=== PATIENT | female | born 1975 | race Caucasian/White ===

== ENCOUNTER 2021-11-12 07:39 | Inpatient (IN) | payer BC, SELFPAY ==
[2021-11-12] MEDS ORDERED: Cefepime 2 GM VIAL ONE (08:18)
[2021-11-12] MEDS ORDERED: Acetaminophen 500 MG TAB ONE (08:18)
[2021-11-12 08:21] LABS: Hemoglobin 14.1 g/dL (12.0-16.0); Mean Corpuscular HGB CONC 33.5 g/dL (32.0-36.0); Mean Corpuscular Hemoglobin 28.6 pg (27.0-31.0); Mean Corpuscular Volume 85.2 fL (78.0-98.0); Mean Platelet Volume 8.9 fL (7.4-10.4); Platelet Count 207 thou/uL (130-400); RBC Distribution Width 12.7 % (11.5-14.5); Red Blood Cell (RBC) Count 4.93 mill/uL (4.20-5.40); White Blood Cell (WBC) Count 22.4 thou/uL (4.8-10.8)
[2021-11-12 08:30] LABS: BHCG - Serum Negative (NEGATIVE); Pregs Control Background? CLEAR/WHITE (CLR/WHITE); Pregs Control Bar Appear? YES (CONTROL BAR)
[2021-11-12 08:38] LABS: ALT (SGPT) 57 U/L (8-55); AST (SGOT) 24 U/L (5-34); Albumin 4.2 g/dL (3.5-5.0); Alkaline Phosphatase 133 U/L (40-110); Anion Gap 20 mmol/L (10-20); BUN (Urea Nitrogen) 30 mg/dL (7.0-18.7); Bilirubin, Total 1.3 mg/dL (0.2-1.2); Calc. Creatinine Clearance 0 mL/min (70-130); Calcium 9.8 mg/dL (7.8-10.44); Carbon Dioxide 24 mmol/L (22-29); Chloride 94 mmol/L (98-107); Estimated GFR 32; Globulin 4.2 g/dL (2.4-3.5); Glucose 177 mg/dL (70-105); Potassium 3.3 mmol/L (3.5-5.1); Protein, Total 8.4 g/dL (6.0-8.3); Sodium 135 mmol/L (136-145)
[2021-11-12 08:46] LABS: INR-International Normal Ratio 1.2; Prothrombin Time 15.8 sec (12.0-14.7)
[2021-11-12 08:47] LABS: PTT 33.3 sec (22.9-36.1)
[2021-11-12 08:59] LABS: Band 33 % (5-11); Lymphocytes 10 % (21-51); MDiff Complete? YES; Metamyelocyte 1 % (0-0); Monocytes 6 % (0-10); Neutrophil 50 % (42-75); Platelet Morphology Comment Appears Adequate; RBC Morphology Normal; Vacuoles SLIGHT
[2021-11-12 09:20] LABS: Bilirubin Negative (Negative); Blood, Urine 2+ (Negative); Clarity Extra Turbid (Clear); Glucose, Urine (Dipstick) 50 mg/dL (Negative); Ketone, Urine Trace mg/dL (Negative); Leukocyte 250 Leu/uL (Negative); Nitrite Negative (Negative); Protein, Urine (Dipstick) 200 mg/dL (Neg-Trace); Specific Gravity, Urine 1.025 (1.002-1.036); Urobilinogen Normal mg/dL (Less than 2); pH, Urine 5.5 (5.0-9.0)
[2021-11-12 09:25] LABS: Bacteria/HPF 4+ HPF (None Seen)
[2021-11-12] MEDS ORDERED: VANCOMYCIN 2 GRAM/500 ML BAG 2 GM in Premix Bag 1 BAG IVPB SCH (09:45)
[2021-11-12] MEDS ORDERED: Ketorolac Tromethamine 30 MG/ML VIAL ONE (10:59)
[2021-11-12] MEDS: Sodium Chloride 0.9% 1,000 ML IV SCH ×3 (11:45→23:35)
[2021-11-12] MEDS ORDERED: Fentanyl 100 MCG/2 ML VIAL ONE (11:49)
[2021-11-12 12:42] LABS: SARS-CoV-2 NAA Rapid Test Not Detected (NotDetected)
[2021-11-12] MEDS ORDERED: Sodium Chloride 0.9% 1,000 ML IV SCH (12:45)
[2021-11-12] MEDS ORDERED: Communication Order-Pharmacy FS SCH (12:46)
[2021-11-12] MEDS ORDERED: HYDROcodone/Acetaminophen 5/325 mg Tablet PO PRN (12:46)
[2021-11-12] MEDS ORDERED: Ondansetron ODT 4 MG TAB PO PRN (12:46)
[2021-11-12] MEDS ORDERED: Fentanyl 100 MCG/2 ML VIAL SLOW IVP SCH (13:45)
[2021-11-12] MEDS: Ondansetron PF 4 MG/2 ML Vial IVP PRN ×2 (14:31→20:33)
[2021-11-12] MEDS ORDERED: Iopamidol-370 76% 500 ML 1 ML ONE (14:50)
[2021-11-12] MEDS: Acetaminophen 500 MG TAB PO PRN (17:09)
[2021-11-12] MEDS: Ketorolac Tromethamine 30 MG/ML VIAL IVP PRN (18:47)
[2021-11-12] MEDS: Cefepime 1 GM in Sodium Chloride 0.9% 100 ML IVPB SCH (20:33)
[2021-11-12] MEDS ORDERED: Famotidine/PF 20 mg/2ml Vial SLOW IVP SCH (21:00)
[2021-11-13] MEDS ORDERED: Sodium Chloride 0.9% 500 ML IVPB SCH (00:45)
[2021-11-13] MEDS ORDERED: Sodium Chloride 0.9% 500 ML IV SCH (00:45)
[2021-11-13] MEDS: Acetaminophen 500 MG TAB PO PRN (00:59)
[2021-11-13] MEDS: Sodium Chloride 0.9% 1,000 ML IV SCH ×3 (02:28→14:44)
[2021-11-13] MEDS: Ketorolac Tromethamine 30 MG/ML VIAL IVP PRN (03:24)
[2021-11-13 03:58] LABS: Hemoglobin A1c 5.4 % (4.0-6.0)
[2021-11-13 04:27] LABS: ALT (SGPT) 29 U/L (8-55); AST (SGOT) 19 U/L (5-34); Albumin 2.7 g/dL (3.5-5.0); Alkaline Phosphatase 68 U/L (40-110); Anion Gap 16 mmol/L (10-20); BUN (Urea Nitrogen) 29 mg/dL (7.0-18.7); Bilirubin, Total 1.1 mg/dL (0.2-1.2); Calc. Creatinine Clearance 90 mL/min (70-130); Calcium 7.6 mg/dL (7.8-10.44); Carbon Dioxide 17 mmol/L (22-29); Chloride 107 mmol/L (98-107); Estimated GFR 48; Glucose 121 mg/dL (70-105); Potassium 2.7 mmol/L (3.5-5.1); Protein, Total 5.7 g/dL (6.0-8.3); Sodium 137 mmol/L (136-145)
[2021-11-13] MEDS: NOREPINEPHRINE 8 MG/250 ML-D5W 250 ML IVPB SCH ×2 (04:35→23:53)
[2021-11-13 04:37] LABS: Band 50 % (5-11); Blast 1 % (0-0); Eosinophils 1 % (0-10); Hemoglobin 10.8 g/dL (12.0-16.0); Lymphocytes 8 % (21-51); MDiff Complete? YES; Mean Corpuscular HGB CONC 32.6 g/dL (32.0-36.0); Mean Corpuscular Hemoglobin 28.1 pg (27.0-31.0); Mean Corpuscular Volume 86.1 fL (78.0-98.0); Metamyelocyte 12 % (0-0); Monocytes 5 % (0-10); Myelocyte 2 % (0-0); Neutrophil 21 % (42-75); Platelet Count 148 thou/uL (130-400); Platelet Morphology Comment Appears Adequate; RBC Distribution Width 12.8 % (11.5-14.5); RBC Morphology Normal; Red Blood Cell (RBC) Count 3.84 mill/uL (4.20-5.40); Reflex for Review?? YES; White Blood Cell (WBC) Count 5.6 thou/uL (4.8-10.8)
[2021-11-13] MEDS ORDERED: Potassium Chloride 20 MEQ TAB PO SCH ×2 (05:00→16:00)
[2021-11-13 05:28] LABS: Magnesium 1.2 mg/dL (1.6-2.6)
[2021-11-13] MEDS ORDERED: Magnesium 2 GM/50 ML(in water) 2 GM in Premix Bag 1 BAG IVPB SCH ×2 (06:15→08:15)
[2021-11-13] MEDS ORDERED: Electrolyte Replacement Protocol 1 EACH FS SCH ×2 (07:45→14:00)
[2021-11-13] MEDS ORDERED: Potassium Chloride 40 MEQ in Premix Bag 1 BAG IVPB SCH ×2 (08:15→13:00)
[2021-11-13] MEDS: Cefepime 1 GM in Sodium Chloride 0.9% 100 ML IVPB SCH ×2 (08:56→20:32)
[2021-11-13] MEDS ORDERED: FLU VACC QS2022-23(6MOS UP)/PF 60 MCG/0.5 ML SYRINGE IM ONE (09:00)
[2021-11-13 09:39] LABS: HBCM Index 0.05 S/CO (0-0.79); HBSAg Index 0.53 S/CO (0-0.99); HIV (1/2) Antibody/Antigen Non-Reactive (NonReactive); HIV 1/2 INDEX 0.09 S/CO (<1.00); Hep A IgM AB Non-Reactive (NonReactive); Hep A IgM S/CO 0.16 S/CO (0-0.79); Hep B Surf Ag Non-Reactive S/CO (NonReactive); Hep C IgG Ab Non-Reactive (NonReactive); Hepatitis B Core IgM Abs Non-Reactive (NonReactive)
[2021-11-13] MEDS: Vancomycin 1.5 GRAM/300 ML BAG 1.5 GM in Premix Bag 1 BAG IVPB SCH (09:45)
[2021-11-13] MEDS: Morphine 2 MG/ML VIAL SLOW IVP PRN ×2 (09:57→14:27)
[2021-11-13] MEDS: metroNIDAZOLE 500 MG in Premix Bag 1 BAG IVPB SCH ×2 (10:42→17:45)
[2021-11-13] MEDS ORDERED: fentaNYL Citrate/PF 100 MCG/2 ML SYRINGE ONE (10:54)
[2021-11-13] MEDS ORDERED: Famotidine/PF 20 mg/2ml Vial ONE (10:55)
[2021-11-13] MEDS ORDERED: ePHEDrine Sulfate 50 MG/10 ML VIAL ONE (10:55)
[2021-11-13] MEDS ORDERED: SUGAMMADEX SODIUM 200 MG/2 ML VIAL ONE (10:55)
[2021-11-13 11:11] LABS: INR-International Normal Ratio 1.5
[2021-11-13 11:12] LABS: PTT 30.7 sec (22.9-36.1)
[2021-11-13] MEDS ORDERED: Lidocaine 2% 6 ML SYR ONE (11:25)
[2021-11-13] MEDS ORDERED: Lidocaine 1% PF 5 ML VIAL ONE (11:25)
[2021-11-13] MEDS ORDERED: Lidocaine 1% MPF 2 ML VIAL ONE (11:37)
[2021-11-13] MEDS ORDERED: Metoclopramide HCl 10 MG/2 ML VIAL ONE (11:37)
[2021-11-13] MEDS ORDERED: Ondansetron PF 4 MG/2 ML Vial ONE (11:37)
[2021-11-13] MEDS ORDERED: Rocuronium Bromide 10 MG/ML (10ML VIAL) ONE ×2 (11:37)
[2021-11-13] MEDS ORDERED: Calcium Chloride 1 GM/10 ML Abboject SYRINGE ONE (11:37)
[2021-11-13] MEDS ORDERED: Succinylcholine 200 MG/10 ml SYRINGE FS ONE (11:37)
[2021-11-13] MEDS ORDERED: PHENYLEPHRINE-NS 100 MCG/ML 10 ML SYRINGE ONE (11:37)
[2021-11-13] MEDS ORDERED: PROPOFOL 200 MG/20 ML VIAL ONE (11:37)
[2021-11-13] MEDS ORDERED: Neomycin-Polymyxin 1 ML AMP ONE (12:51)
[2021-11-13 12:58] LABS: Syphilis Antibody INDETERMINATE (Nonreactive); Syphilis Antibody Index 7.41 S/CO (<1.00 Non-Reactive)
[2021-11-13] MEDS ORDERED: HYDROmorphone 10 mg/100 ml CADD IVPB PRN (14:52)
[2021-11-13] MEDS ORDERED: diphenhydrAMINE 50 MG/ML VIAL IM PRN (14:52)
[2021-11-13] MEDS ORDERED: diphenhydrAMINE 50 MG/ML VIAL IVP PRN (14:52)
[2021-11-13] MEDS ORDERED: Naloxone HCl 0.4 mg/ml Vial IV PRN (14:52)
[2021-11-13] MEDS ORDERED: Promethazine HCl 25 MG/ML VIAL IM PRN (14:52)
[2021-11-13] MEDS ORDERED: diphenhydrAMINE 25 MG CAP PO PRN (14:52)
[2021-11-13] MEDS ORDERED: Communication Order-Pharmacy FS SCH (15:00)
[2021-11-13] MEDS ORDERED: Fentanyl 100 MCG/2 ML VIAL SLOW IVP SCH (15:00)
[2021-11-13 15:18] LABS: Potassium 3.3 mmol/L (3.5-5.1)
[2021-11-13] MEDS ORDERED: Lorazepam 0.5 MG TAB PO PRN (16:52)
[2021-11-13 17:07] LABS: ALV-art Gradient 12.505 mmHg (0-20); Actual Bicarbonate (HCO3a) 16.4 mEq/L (22-28); Base Excess (BEa) -7.6 mEq/L (-2.0 to +3.0); CO2 Tension 28.9 mmHg (35.0-45.0); Calcium, Ionized (arterial) 1.14 mmol/L (1.12-1.30); Carboxyhemoglobin (COHb) 0.3 gm% (0.0-3.0); Hemoglobin (Hb) 11.2 g/dL (12.0-16.0); O2 Tension (PaO2), arterial 101.1 mmHg (80.0-100.0); Potassium - ABG Lab 3.13 mmol/L (3.70-5.30); Puncture Site Arterial Line; pH, Arterial 7.37 (7.35-7.45)
[2021-11-13] MEDS ORDERED: Metoprolol Tartrate 5 MG/5 ML VIAL ONE (18:44)
[2021-11-13] MEDS ORDERED: Metoprolol Tartrate 5 MG/5 ML VIAL IVP SCH (18:45)
[2021-11-13] MEDS ORDERED: Enoxaparin Sodium 100 MG/ML SYRINGE SC SCH (18:45)
[2021-11-13] MEDS ORDERED: Lactated Ringer's 500 ML IV SCH (19:15)
[2021-11-13] MEDS ORDERED: Enoxaparin Sodium 40 MG/0.4 ML SYRINGE SC SCH (21:00)
[2021-11-13] MEDS: Famotidine/PF 20 mg/2ml Vial SLOW IVP SCH (21:30)
[2021-11-13 21:32] LABS: Chlamydia by PCR Not Detected (NotDetected); GC by PCR Not Detected (NotDetected)
[2021-11-13] MEDS ORDERED: Melatonin 3 MG TAB PO PRN (22:48)
[2021-11-14] MEDS: metroNIDAZOLE 500 MG in Premix Bag 1 BAG IVPB SCH ×2 (01:29→08:53)
[2021-11-14 04:57] LABS: Phosphorus 3.5 mg/dL (2.3-4.7)
[2021-11-14 05:01] LABS: Anion Gap 14 mmol/L (10-20); BUN (Urea Nitrogen) 23 mg/dL (7.0-18.7); Calc. Creatinine Clearance 118 mL/min (70-130); Calcium 7.8 mg/dL (7.8-10.44); Carbon Dioxide 18 mmol/L (22-29); Chloride 107 mmol/L (98-107); Estimated GFR 64; Glucose 104 mg/dL (70-105); Potassium 3.2 mmol/L (3.5-5.1); Sodium 136 mmol/L (136-145)
[2021-11-14 05:02] LABS: Hemoglobin 10.5 g/dL (12.0-16.0); Mean Corpuscular HGB CONC 30.8 g/dL (32.0-36.0); Mean Corpuscular Hemoglobin 27.5 pg (27.0-31.0); Mean Corpuscular Volume 89.2 fL (78.0-98.0); Mean Platelet Volume 9.1 fL (7.4-10.4); Platelet Count 179 thou/uL (130-400); RBC Distribution Width 13.6 % (11.5-14.5); Red Blood Cell (RBC) Count 3.81 mill/uL (4.20-5.40); White Blood Cell (WBC) Count 8.5 thou/uL (4.8-10.8)
[2021-11-14 05:03] LABS: Band 55 % (5-11); Lymphocytes 17 % (21-51); MDiff Complete? YES; Monocytes 8 % (0-10); Neutrophil 20 % (42-75); Toxic Granulation SLIGHT; Vacuoles SLIGHT
[2021-11-14] MEDS ORDERED: fentaNYL Citrate/PF 100 MCG/2 ML SYRINGE ONE (06:55)
[2021-11-14] MEDS ORDERED: Midazolam HCl 2 mg/2 ml Vial ONE ×2 (07:13→09:22)
[2021-11-14] MEDS: Sodium Chloride 0.9% 1,000 ML IV SCH ×3 (07:33→22:59)
[2021-11-14] MEDS ORDERED: Magnesium 2 GM/50 ML(in water) 2 GM in Premix Bag 1 BAG IVPB SCH (08:00)
[2021-11-14] MEDS ORDERED: Succinylcholine 200 MG/10 ml SYRINGE FS ONE (08:02)
[2021-11-14] MEDS ORDERED: Ondansetron PF 4 MG/2 ML Vial ONE (08:02)
[2021-11-14] MEDS ORDERED: Lidocaine 1% PF 5 ML VIAL ONE (08:02)
[2021-11-14] MEDS ORDERED: PHENYLEPHRINE-NS 100 MCG/ML 10 ML SYRINGE ONE (08:02)
[2021-11-14] MEDS ORDERED: Dexamethasone 20 MG/5 ML VIAL ONE (08:02)
[2021-11-14] MEDS ORDERED: PROPOFOL 200 MG/20 ML VIAL ONE (08:02)
[2021-11-14] MEDS ORDERED: Rocuronium Bromide 10 MG/ML (10ML VIAL) ONE (08:02)
[2021-11-14] MEDS: Cefepime 1 GM in Sodium Chloride 0.9% 100 ML IVPB SCH (08:53)
[2021-11-14] MEDS ORDERED: Neomycin-Polymyxin 1 ML AMP ONE (09:01)
[2021-11-14] MEDS ORDERED: Piperacillin/Tazobactam 3.375 GM in Sodium Chloride 0.9% 100 ML IVPB SCH ×2 (10:00→10:15)
[2021-11-14] MEDS: Enoxaparin Sodium 100 MG/ML SYRINGE SC SCH ×2 (10:30→20:56)
[2021-11-14] MEDS: Famotidine/PF 20 mg/2ml Vial SLOW IVP SCH ×2 (10:30→20:55)
[2021-11-14] MEDS: Potassium Chloride 20 MEQ in Premix Bag 1 BAG IVPB SCH ×2 (10:31→11:37)
[2021-11-14] MEDS ORDERED: Ventilator Sedation Protocol 1 EACH FS SCH (10:45)
[2021-11-14 11:01] LABS: Actual Bicarbonate (HCO3a) 17.6 mEq/L (22-28); Base Excess (BEa) -10.2 mEq/L (-2.0 to +3.0); CO2 Tension 46.6 mmHg (35.0-45.0); Calcium, Ionized (arterial) 1.08 mmol/L (1.12-1.30); Carboxyhemoglobin (COHb) 0.6 gm% (0.0-3.0); Hemoglobin (Hb) 10.8 g/dL (12.0-16.0); O2 Tension (PaO2), arterial 74.2 mmHg (80.0-100.0); Potassium - ABG Lab 3.81 mmol/L (3.70-5.30)
[2021-11-14 11:02] LABS: Puncture Site Arterial Line; pH, Arterial 7.19 (7.35-7.45)
[2021-11-14] MEDS ORDERED: DISCONTINUE PREVIOUS NARCOTIC PAIN MEDICATIONS AND BENZODIAZEPINES FS SCH (11:15)
[2021-11-14] MEDS ORDERED: Morphine 4 MG/ML VIAL SLOW IVP PRN (11:15)
[2021-11-14] MEDS ORDERED: Propofol BOLUS 1,000 MG/100 ML VIAL IV PRN (11:15)
[2021-11-14] MEDS ORDERED: Fentanyl BOLUS 250 ML IVPB PRN (11:15)
[2021-11-14] MEDS: Fentanyl CADD 100 ML IV SCH (11:36)
[2021-11-14 12:24] LABS: Vancomycin, Trough 3.4 ug/mL
[2021-11-14 12:59] LABS: Actual Bicarbonate (HCO3a) 18.3 mEq/L (22-28); Calcium, Ionized (arterial) 1.05 mmol/L (1.12-1.30); Carboxyhemoglobin (COHb) 0.2 gm% (0.0-3.0); Hemoglobin (Hb) 10.6 g/dL (12.0-16.0); O2 Tension (PaO2), arterial 92.6 mmHg (80.0-100.0); Potassium - ABG Lab 4.37 mmol/L (3.70-5.30); pH, Arterial 7.38 (7.35-7.45)
[2021-11-14 13:00] LABS: Puncture Site Arterial Line
[2021-11-14] MEDS ORDERED: Vancomycin 1.5 GRAM/300 ML BAG 1.5 GM in Premix Bag 1 BAG IVPB SCH (13:00)
[2021-11-14] MEDS: Vancomycin 1.5 GRAM/300 ML BAG 1.5 GM in Premix Bag 1 BAG IVPB SCH ×3 (13:50→21:05)
[2021-11-14] MEDS: Clindamycin/D5W 900 MG in Premix Bag 1 BAG IVPB SCH ×2 (15:03→21:03)
[2021-11-14] MEDS: Midazolam HCl 2 mg/2 ml Vial SLOW IVP PRN ×2 (15:14→17:17)
[2021-11-14 16:44] LABS: Potassium 4.1 mmol/L (3.5-5.1)
[2021-11-14] MEDS: Piperacillin/Tazobactam 3.375 GM in Sodium Chloride 0.9% 100 ML IVPB SCH (17:19)
[2021-11-14] MEDS: Acetaminophen 500 MG TAB PO PRN (17:19)
[2021-11-14] MEDS: NOREPINEPHRINE 8 MG/250 ML-D5W 250 ML IVPB SCH (17:48)
[2021-11-14] MEDS: Propofol 1,000 MG/100 ML VIAL IV PRN (18:22)
[2021-11-14] MEDS ORDERED: Cefepime 2 GM in Sodium Chloride 0.9% 100 ML IVPB SCH (21:00)
[2021-11-15] MEDS: Piperacillin/Tazobactam 3.375 GM in Sodium Chloride 0.9% 100 ML IVPB SCH ×3 (01:38→17:34)
[2021-11-15] MEDS: Propofol 1,000 MG/100 ML VIAL IV PRN (03:49)
[2021-11-15] MEDS: Vancomycin 1.5 GRAM/300 ML BAG 1.5 GM in Premix Bag 1 BAG IVPB SCH ×2 (04:41→15:43)
[2021-11-15 04:45] LABS: ALT (SGPT) 28 U/L (8-55); AST (SGOT) 43 U/L (5-34); Albumin 2.3 g/dL (3.5-5.0); Alkaline Phosphatase 81 U/L (40-110); Anion Gap 11 mmol/L (10-20); BUN (Urea Nitrogen) 35 mg/dL (7.0-18.7); Bilirubin, Total 0.6 mg/dL (0.2-1.2); Calc. Creatinine Clearance 94 mL/min (70-130); Calcium 7.7 mg/dL (7.8-10.44); Carbon Dioxide 19 mmol/L (22-29); Chloride 112 mmol/L (98-107); Estimated GFR 47; Globulin 3.1 g/dL (2.4-3.5); Glucose 178 mg/dL (70-105); Magnesium 2.7 mg/dL (1.6-2.6); Potassium 3.6 mmol/L (3.5-5.1); Protein, Total 5.4 g/dL (6.0-8.3); Sodium 138 mmol/L (136-145)
[2021-11-15 04:53] LABS: Band 40 % (5-11); Lymphocytes 8 % (21-51); MDiff Complete? YES; Mean Corpuscular HGB CONC 31.3 g/dL (32.0-36.0); Mean Corpuscular Hemoglobin 27.4 pg (27.0-31.0); Mean Corpuscular Volume 87.3 fL (78.0-98.0); Mean Platelet Volume 8.7 fL (7.4-10.4); Monocytes 4 % (0-10); Neutrophil 48 % (42-75); Platelet Count 238 thou/uL (130-400); RBC Distribution Width 13.7 % (11.5-14.5); White Blood Cell (WBC) Count 16.8 thou/uL (4.8-10.8)
[2021-11-15] MEDS: Clindamycin/D5W 900 MG in Premix Bag 1 BAG IVPB SCH ×3 (05:53→21:17)
[2021-11-15] MEDS: NOREPINEPHRINE 8 MG/250 ML-D5W 250 ML IVPB SCH (07:14)
[2021-11-15 07:44] LABS: Actual Bicarbonate (HCO3a) 17.5 mEq/L (22-28); CO2 Tension 27.5 mmHg (35.0-45.0); Calcium, Ionized (arterial) 1.03 mmol/L (1.12-1.30); Hemoglobin (Hb) 9.3 g/dL (12.0-16.0); O2 Tension (PaO2), arterial 142.6 mmHg (80.0-100.0); Potassium - ABG Lab 3.58 mmol/L (3.70-5.30); pH, Arterial 7.42 (7.35-7.45)
[2021-11-15 07:46] LABS: ALV-art Gradient 108.225 mmHg (0-20); Puncture Site Arterial Line
[2021-11-15] MEDS: Famotidine/PF 20 mg/2ml Vial SLOW IVP SCH ×2 (07:49→20:24)
[2021-11-15] MEDS: Enoxaparin Sodium 100 MG/ML SYRINGE SC SCH (08:11)
[2021-11-15] MEDS ORDERED: Calcium Chloride 13.6 MEQ in Sodium Chloride 0.9% 100 ML IVPB SCH (08:30)
[2021-11-15] MEDS: Sodium Chloride 0.9% 1,000 ML IV SCH ×2 (09:10→18:12)
[2021-11-15] MEDS ORDERED: Dextrose 50% Abboject 50 ML SYRINGE SLOW IVP PRN (09:16)
[2021-11-15] MEDS ORDERED: HumaLOG 300 UNITS/3 ML VIAL SC PRN ×2 (09:16)
[2021-11-15] MEDS ORDERED: Dextrose 5% in Water 1,000 ML IV PRN (09:16)
[2021-11-15 09:23] LABS: Lactic Acid 1.6 mmol/L (0.5-2.2)
[2021-11-15] MEDS ORDERED: Midazolam HCl 5 mg/5 ml Vial ONE (09:42)
[2021-11-15] MEDS ORDERED: fentaNYL Citrate/PF 100 MCG/2 ML SYRINGE ONE (09:49)
[2021-11-15] MEDS ORDERED: Rocuronium Bromide 10 MG/ML (10ML VIAL) ONE (11:13)
[2021-11-15] MEDS ORDERED: ePHEDrine 50 MG/ML VIAL ONE (11:13)
[2021-11-15] MEDS ORDERED: PHENYLEPHRINE-NS 100 MCG/ML 10 ML SYRINGE ONE (11:13)
[2021-11-15] MEDS ORDERED: Ondansetron PF 4 MG/2 ML Vial ONE (11:13)
[2021-11-15 14:38] LABS: Vancomycin, Trough 27.7 ug/mL
[2021-11-15] MEDS: Fentanyl CADD 100 ML IV SCH (20:25)
[2021-11-15] MEDS: VANCOMYCIN 1.25 GM/250 ML BAG 1.25 GM in Premix Bag 1 BAG IVPB SCH (20:48)
[2021-11-15] MEDS ORDERED: Enoxaparin Sodium 40 MG/0.4 ML SYRINGE SC SCH ×2 (21:00→21:45)
[2021-11-15] MEDS ORDERED: Vancomycin 1 GM in Premix Bag 1 BAG IVPB SCH (21:00)
[2021-11-16] MEDS: Sodium Chloride 0.9% 1,000 ML IV SCH ×3 (00:08→18:42)
[2021-11-16] MEDS: Propofol 1,000 MG/100 ML VIAL IV PRN ×4 (00:10→22:52)
[2021-11-16] MEDS: Piperacillin/Tazobactam 3.375 GM in Sodium Chloride 0.9% 100 ML IVPB SCH ×2 (01:46→10:34)
[2021-11-16 04:49] LABS: Band 21 % (5-11); Eosinophils 1 % (0-10); Hemoglobin 7.6 g/dL (12.0-16.0); Lymphocytes 16 % (21-51); MDiff Complete? YES; Mean Corpuscular HGB CONC 31.2 g/dL (32.0-36.0); Mean Corpuscular Hemoglobin 27.5 pg (27.0-31.0); Mean Platelet Volume 8.5 fL (7.4-10.4); Monocytes 6 % (0-10); Neutrophil 55 % (42-75); Platelet Count 206 thou/uL (130-400); RBC Distribution Width 13.9 % (11.5-14.5); Red Blood Cell (RBC) Count 2.78 mill/uL (4.20-5.40); White Blood Cell (WBC) Count 14.6 thou/uL (4.8-10.8)
[2021-11-16 04:52] LABS: ALT (SGPT) 79 U/L (8-55); AST (SGOT) 82 U/L (5-34); Albumin 2.1 g/dL (3.5-5.0); Alkaline Phosphatase 114 U/L (40-110); Anion Gap 10 mmol/L (10-20); BUN (Urea Nitrogen) 51 mg/dL (7.0-18.7); Bilirubin, Total 0.6 mg/dL (0.2-1.2); Calc. Creatinine Clearance 77 mL/min (70-130); Calcium 7.3 mg/dL (7.8-10.44); Carbon Dioxide 20 mmol/L (22-29); Chloride 116 mmol/L (98-107); Estimated GFR 36; Glucose 127 mg/dL (70-105); Magnesium 2.7 mg/dL (1.6-2.6); Potassium 3.6 mmol/L (3.5-5.1); Protein, Total 5.1 g/dL (6.0-8.3); Sodium 142 mmol/L (136-145)
[2021-11-16] MEDS: Clindamycin/D5W 900 MG in Premix Bag 1 BAG IVPB SCH ×3 (05:18→21:55)
[2021-11-16] MEDS ORDERED: Lactated Ringer's 1,000 ML IV SCH (07:00)
[2021-11-16] MEDS ORDERED: fentaNYL Citrate/PF 100 MCG/2 ML SYRINGE ONE (07:27)
[2021-11-16] MEDS ORDERED: SUGAMMADEX SODIUM 200 MG/2 ML VIAL ONE (07:27)
[2021-11-16] MEDS ORDERED: Famotidine/PF 20 mg/2ml Vial ONE (07:27)
[2021-11-16] MEDS ORDERED: Calcium Chloride 13.6 MEQ in Sodium Chloride 0.9% 100 ML IVPB SCH (08:00)
[2021-11-16] MEDS ORDERED: Rocuronium Bromide 10 MG/ML (10ML VIAL) ONE (08:22)
[2021-11-16] MEDS ORDERED: Ondansetron PF 4 MG/2 ML Vial ONE (08:22)
[2021-11-16] MEDS ORDERED: PHENYLEPHRINE-NS 100 MCG/ML 10 ML SYRINGE ONE (08:22)
[2021-11-16] MEDS: VANCOMYCIN 1.25 GM/250 ML BAG 1.25 GM in Premix Bag 1 BAG IVPB SCH (10:35)
[2021-11-16] MEDS: Famotidine/PF 20 mg/2ml Vial SLOW IVP SCH ×2 (10:36→20:19)
[2021-11-16] MEDS ORDERED: Fentanyl CADD 100 ML ONE (18:01)
[2021-11-16] MEDS: Fentanyl CADD 100 ML IV SCH (18:04)
[2021-11-16] MEDS: Enoxaparin Sodium 40 MG/0.4 ML SYRINGE SC SCH (20:20)
[2021-11-17] MEDS: Acetaminophen 500 MG TAB PO PRN (00:05)
[2021-11-17] MEDS: Sodium Chloride 0.9% 1,000 ML IV SCH (02:25)
[2021-11-17] MEDS: Propofol 1,000 MG/100 ML VIAL IV PRN ×5 (04:13→23:08)
[2021-11-17] MEDS: Clindamycin/D5W 900 MG in Premix Bag 1 BAG IVPB SCH ×3 (05:29→21:26)
[2021-11-17 07:43] LABS: Hemoglobin 7.8 g/dL (12.0-16.0); Mean Corpuscular HGB CONC 33.1 g/dL (32.0-36.0); Mean Corpuscular Hemoglobin 28.9 pg (27.0-31.0); Mean Corpuscular Volume 87.1 fL (78.0-98.0); Mean Platelet Volume 7.7 fL (7.4-10.4); Platelet Count 205 thou/uL (130-400); RBC Distribution Width 13.9 % (11.5-14.5); Red Blood Cell (RBC) Count 2.69 mill/uL (4.20-5.40); White Blood Cell (WBC) Count 14.2 thou/uL (4.8-10.8)
[2021-11-17 07:51] LABS: Anion Gap 12 mmol/L (10-20); BUN (Urea Nitrogen) 53 mg/dL (7.0-18.7); Calc. Creatinine Clearance 72 mL/min (70-130); Calcium 7.2 mg/dL (7.8-10.44); Carbon Dioxide 16 mmol/L (22-29); Chloride 120 mmol/L (98-107); Estimated GFR 33; Glucose 117 mg/dL (70-105); Magnesium 2.4 mg/dL (1.6-2.6); Phosphorus 3.4 mg/dL (2.3-4.7); Potassium 3.4 mmol/L (3.5-5.1); Sodium 145 mmol/L (136-145)
[2021-11-17] MEDS ORDERED: Potassium Phosphate 30 MMOL in Sodium Chloride 0.9% 250 ML 250 ML IVPB SCH (08:00)
[2021-11-17 08:03] LABS: Vancomycin, Trough 21.2 ug/mL
[2021-11-17] MEDS ORDERED: Vancomycin HCl 750 MG in Sodium Chloride 0.9% 250 ML 250 ML IVPB SCH ×2 (09:00→12:00)
[2021-11-17] MEDS ORDERED: VANCOMYCIN 1.25 GM/250 ML BAG 1.25 GM in Premix Bag 1 BAG IVPB SCH (09:00)
[2021-11-17] MEDS: Famotidine/PF 20 mg/2ml Vial SLOW IVP SCH ×2 (09:03→20:49)
[2021-11-17] MEDS: Sodium Bicarbonate 150 MEQ in Dextrose 5% in Water 1,000 ML IV SCH ×2 (09:03→18:25)
[2021-11-17 09:10] LABS: Band 37 % (5-11); Hypochromia SLIGHT = 6-15 cells (100X) (0-5/hpf); Lymphocytes 16 % (21-51); MDiff Complete? YES; Metamyelocyte 3 % (0-0); Monocytes 1 % (0-10); Neutrophil 43 % (42-75); Platelet Morphology Comment Appears Adequate; Polychromasia SLIGHT = 2-3 cells (100X) (0-2/hpf)
[2021-11-17] MEDS ORDERED: Activase 2 MG VIAL CATH SCH (09:45)
[2021-11-17] MEDS ORDERED: Vancomycin 1 GM in Premix Bag 1 BAG IVPB SCH (12:00)
[2021-11-17] MEDS ORDERED: Meropenem 1 GM in Sodium Chloride 0.9% 100 ML IVPB SCH ×3 (12:00→23:59)
[2021-11-17] MEDS ORDERED: Piperacillin/Tazobactam 3.375 GM in Sodium Chloride 0.9% 100 ML IVPB SCH (12:00)
[2021-11-17] MEDS ORDERED: Micafungin 150 MG in Sodium Chloride 0.9% 100 ML IVPB SCH (13:00)
[2021-11-17] MEDS ORDERED: Fentanyl CADD 100 ML ONE (13:27)
[2021-11-17] MEDS: Fentanyl CADD 100 ML IV SCH (13:36)
[2021-11-17] MEDS: Enoxaparin Sodium 40 MG/0.4 ML SYRINGE SC SCH (20:49)
[2021-11-18] MEDS: Sodium Bicarbonate 150 MEQ in Dextrose 5% in Water 1,000 ML IV SCH ×2 (03:48→17:14)
[2021-11-18] MEDS: Propofol 1,000 MG/100 ML VIAL IV PRN ×4 (03:49→19:52)
[2021-11-18 04:40] LABS: Hemoglobin 7.3 g/dL (12.0-16.0); Mean Corpuscular HGB CONC 31.2 g/dL (32.0-36.0); Mean Corpuscular Volume 86.7 fL (78.0-98.0); Mean Platelet Volume 7.9 fL (7.4-10.4); Platelet Count 202 thou/uL (130-400); RBC Distribution Width 14.1 % (11.5-14.5); Red Blood Cell (RBC) Count 2.71 mill/uL (4.20-5.40)
[2021-11-18 05:01] LABS: Band 25 % (5-11); Lymphocytes 21 % (21-51); MDiff Complete? YES; Monocytes 9 % (0-10); Myelocyte 1 % (0-0); Neutrophil 44 % (42-75)
[2021-11-18 05:05] LABS: Phosphorus 3.9 mg/dL (2.3-4.7)
[2021-11-18] MEDS: Clindamycin/D5W 900 MG in Premix Bag 1 BAG IVPB SCH ×3 (05:37→21:23)
[2021-11-18] MEDS ORDERED: Potassium Chloride 40 MEQ in Premix Bag 1 BAG IVPB SCH (06:30)
[2021-11-18] MEDS ORDERED: Midazolam HCl 2 mg/2 ml Vial ONE (06:56)
[2021-11-18] MEDS ORDERED: fentaNYL Citrate/PF 100 MCG/2 ML SYRINGE ONE (06:56)
[2021-11-18 07:19] LABS: Anion Gap 14 mmol/L (10-20); BUN (Urea Nitrogen) 37 mg/dL (7.0-18.7); Calc. Creatinine Clearance 96 mL/min (70-130); Calcium 7.2 mg/dL (7.8-10.44); Carbon Dioxide 21 mmol/L (22-29); Chloride 116 mmol/L (98-107); Estimated GFR 47; Glucose 118 mg/dL (70-105); Magnesium 2.2 mg/dL (1.6-2.6); Potassium 3.3 mmol/L (3.5-5.1); Sodium 148 mmol/L (136-145)
[2021-11-18] MEDS ORDERED: Rocuronium Bromide 10 MG/ML (10ML VIAL) ONE (08:10)
[2021-11-18] MEDS ORDERED: Ondansetron PF 4 MG/2 ML Vial ONE (08:10)
[2021-11-18] MEDS ORDERED: diphenhydrAMINE 50 MG/ML VIAL ONE (08:10)
[2021-11-18] MEDS ORDERED: Neomycin-Polymyxin 1 ML AMP ONE (08:44)
[2021-11-18] MEDS ORDERED: HYDROmorphone 2 MG/ML VIAL ONE (08:44)
[2021-11-18] MEDS: Famotidine/PF 20 mg/2ml Vial SLOW IVP SCH ×2 (11:00→20:49)
[2021-11-18] MEDS ORDERED: Fentanyl CADD 100 ML ONE (12:27)
[2021-11-18] MEDS: Fentanyl CADD 100 ML IV SCH (12:29)
[2021-11-18] MEDS: Meropenem 1 GM in Sodium Chloride 0.9% 100 ML IVPB SCH ×3 (13:45→23:30)
[2021-11-18 14:00] LABS: Potassium 3.2 mmol/L (3.5-5.1)
[2021-11-18] MEDS ORDERED: VANCOMYCIN 1.75 GM/500 ML BAG 1.75 GM in Premix Bag 1 BAG IVPB SCH (15:00)
[2021-11-18] MEDS: Vancomycin 1 GM in Premix Bag 1 BAG IVPB SCH (15:31)
[2021-11-18] MEDS: Enoxaparin Sodium 40 MG/0.4 ML SYRINGE SC SCH (20:56)
[2021-11-19] MEDS: Propofol 1,000 MG/100 ML VIAL IV PRN ×5 (00:24→20:08)
[2021-11-19] MEDS: Sodium Bicarbonate 150 MEQ in Dextrose 5% in Water 1,000 ML IV SCH (02:15)
[2021-11-19] MEDS: Vancomycin 1 GM in Premix Bag 1 BAG IVPB SCH ×2 (02:41→15:50)
[2021-11-19] MEDS: Clindamycin/D5W 900 MG in Premix Bag 1 BAG IVPB SCH ×3 (05:04→21:13)
[2021-11-19 05:23] LABS: Anion Gap 12 mmol/L (10-20); BUN (Urea Nitrogen) 23 mg/dL (7.0-18.7); Calc. Creatinine Clearance 118 mL/min (70-130); Calcium 7.1 mg/dL (7.8-10.44); Carbon Dioxide 26 mmol/L (22-29); Chloride 111 mmol/L (98-107); Estimated GFR 60; Glucose 141 mg/dL (70-105); Sodium 146 mmol/L (136-145)
[2021-11-19] MEDS ORDERED: Potassium Chloride 40 MEQ in Premix Bag 1 BAG IVPB SCH (06:30)
[2021-11-19 06:31] LABS: Band 24 % (5-11); Eosinophils 1 % (0-10); Lymphocytes 24 % (21-51); MDiff Complete? YES; Mean Corpuscular HGB CONC 32.2 g/dL (32.0-36.0); Mean Corpuscular Volume 86.9 fL (78.0-98.0); Mean Platelet Volume 8.2 fL (7.4-10.4); Monocytes 5 % (0-10); Neutrophil 46 % (42-75); Platelet Count 220 thou/uL (130-400); RBC Distribution Width 13.8 % (11.5-14.5); Red Blood Cell (RBC) Count 2.86 mill/uL (4.20-5.40); White Blood Cell (WBC) Count 11.4 thou/uL (4.8-10.8)
[2021-11-19] MEDS: Potassium Chloride 20 MEQ in Premix Bag 1 BAG IVPB SCH ×2 (06:44→08:09)
[2021-11-19] MEDS: Famotidine/PF 20 mg/2ml Vial SLOW IVP SCH ×2 (08:05→20:33)
[2021-11-19] MEDS: Fentanyl CADD 100 ML IV SCH (08:05)
[2021-11-19] MEDS: Meropenem 1 GM in Sodium Chloride 0.9% 100 ML IVPB SCH ×3 (08:05→23:21)
[2021-11-19] MEDS: Sodium Chloride 0.45% 1,000 ML IV SCH ×2 (09:48→20:33)
[2021-11-19] MEDS ORDERED: fentaNYL Citrate/PF 100 MCG/2 ML SYRINGE ONE ×3 (09:58→11:32)
[2021-11-19] MEDS ORDERED: Midazolam HCl 5 mg/5 ml Vial ONE (09:58)
[2021-11-19] MEDS ORDERED: Rocuronium Bromide 10 MG/ML (10ML VIAL) ONE (10:40)
[2021-11-19] MEDS ORDERED: Neomycin-Polymyxin 1 ML AMP ONE (11:09)
[2021-11-19] MEDS ORDERED: Rocuronium Bromide 50 MG/5 ML VIAL ONE (11:15)
[2021-11-19] MEDS ORDERED: Albumin 5% 1,000 ML ONE (11:31)
[2021-11-19] MEDS ORDERED: Furosemide 20 MG/2 ML VIAL ONE (11:32)
[2021-11-19 13:49] LABS: Actual Bicarbonate (HCO3a) 26.9 mEq/L (22-28); Base Excess (BEa) 4.1 mEq/L (-2.0 to +3.0); CO2 Tension 32.9 mmHg (35.0-45.0); Calcium, Ionized (arterial) 0.98 mmol/L (1.12-1.30); Carboxyhemoglobin (COHb) 0.7 gm% (0.0-3.0); Hemoglobin (Hb) 8.3 g/dL (12.0-16.0); O2 Tension (PaO2), arterial 69.6 mmHg (80.0-100.0); Potassium - ABG Lab 3.13 mmol/L (3.70-5.30); pH, Arterial 7.53 (7.35-7.45)
[2021-11-19 13:54] LABS: ALV-art Gradient 174.475 mmHg (0-20); Puncture Site Arterial Line
[2021-11-19 15:13] LABS: Potassium 3.3 mmol/L (3.5-5.1)
[2021-11-19] MEDS: Enoxaparin Sodium 40 MG/0.4 ML SYRINGE SC SCH (20:32)
[2021-11-19] MEDS: Acetaminophen 650 MG/20.3 ML UDCUP PO PRN (21:37)
[2021-11-20] MEDS: Propofol 1,000 MG/100 ML VIAL IV PRN ×4 (01:10→18:39)
[2021-11-20] MEDS ORDERED: Potassium Chloride 40 MEQ in Premix Bag 1 BAG IVPB SCH ×2 (01:30→08:00)
[2021-11-20 02:23] LABS: #Eosinphils 0.2 thou/uL (0.0-0.7); #Lymphocytes 2.1 thou/uL (1.20-3.40); #Monocytes 0.6 thou/uL (0.11-0.59); #Neutrophils 7.9 thou/uL (1.40-6.50); %Basophils 0.2 % (0.0-1.0); %Lymphocytes 19.6 % (21.0-51.0); %Monocytes 5.5 % (0.0-10.0); %Neutrophils 72.7 % (42.0-75.0); Hemoglobin 7.5 g/dL (12.0-16.0); Mean Corpuscular Hemoglobin 28.1 pg (27.0-31.0); Mean Corpuscular Volume 87.6 fL (78.0-98.0); Mean Platelet Volume 7.9 fL (7.4-10.4); Platelet Count 240 thou/uL (130-400); RBC Distribution Width 13.9 % (11.5-14.5); Red Blood Cell (RBC) Count 2.67 mill/uL (4.20-5.40); White Blood Cell (WBC) Count 10.8 thou/uL (4.8-10.8)
[2021-11-20 02:47] LABS: Anion Gap 11 mmol/L (10-20); BUN (Urea Nitrogen) 23 mg/dL (7.0-18.7); Calc. Creatinine Clearance 126 mL/min (70-130); Calcium 6.9 mg/dL (7.8-10.44); Carbon Dioxide 27 mmol/L (22-29); Chloride 111 mmol/L (98-107); Estimated GFR 63; Glucose 123 mg/dL (70-105); Potassium 3.2 mmol/L (3.5-5.1); Sodium 146 mmol/L (136-145)
[2021-11-20] MEDS: Vancomycin 1 GM in Premix Bag 1 BAG IVPB SCH ×2 (03:00→15:09)
[2021-11-20] MEDS: Clindamycin/D5W 900 MG in Premix Bag 1 BAG IVPB SCH ×3 (05:16→21:08)
[2021-11-20 06:14] LABS: Potassium 3.4 mmol/L (3.5-5.1)
[2021-11-20] MEDS: Fentanyl CADD 100 ML IV SCH (06:34)
[2021-11-20] MEDS ORDERED: Calcium Chloride 1 GM/10 ML Abboject SYRINGE IVP SCH (07:30)
[2021-11-20] MEDS ORDERED: Calcium Chloride 13.6 MEQ in Sodium Chloride 0.9% 100 ML IVPB SCH (08:00)
[2021-11-20] MEDS: Meropenem 1 GM in Sodium Chloride 0.9% 100 ML IVPB SCH ×3 (08:33→23:32)
[2021-11-20] MEDS: Famotidine/PF 20 mg/2ml Vial SLOW IVP SCH ×2 (08:36→21:08)
[2021-11-20] MEDS: Enoxaparin Sodium 40 MG/0.4 ML SYRINGE SC SCH ×2 (10:27→21:08)
[2021-11-20] MEDS: Dextrose 5% in Water 1,000 ML IV SCH ×2 (12:06→23:32)
[2021-11-20] MEDS: Sodium Chloride 0.45% 1,000 ML IV SCH (13:00)
[2021-11-21] MEDS ORDERED: Fentanyl CADD 100 ML ONE ×2 (00:50→22:53)
[2021-11-21] MEDS: Propofol 1,000 MG/100 ML VIAL IV PRN ×4 (00:56→19:54)
[2021-11-21] MEDS: Fentanyl CADD 100 ML IV SCH ×2 (00:58→22:57)
[2021-11-21] MEDS: Vancomycin 1 GM in Premix Bag 1 BAG IVPB SCH ×2 (02:48→14:16)
[2021-11-21 05:01] LABS: #Eosinphils 0.2 thou/uL (0.0-0.7); #Lymphocytes 2.5 thou/uL (1.20-3.40); #Monocytes 0.5 thou/uL (0.11-0.59); #Neutrophils 7.1 thou/uL (1.40-6.50); %Basophils 0.2 % (0.0-1.0); %Eosinophils 2.2 % (0.0-10.0); %Lymphocytes 24.1 % (21.0-51.0); %Monocytes 5.1 % (0.0-10.0); %Neutrophils 68.4 % (42.0-75.0); Mean Corpuscular HGB CONC 31.3 g/dL (32.0-36.0); Mean Corpuscular Hemoglobin 27.7 pg (27.0-31.0); Mean Corpuscular Volume 88.4 fL (78.0-98.0); Mean Platelet Volume 8.4 fL (7.4-10.4); Platelet Count 256 thou/uL (130-400); RBC Distribution Width 14.1 % (11.5-14.5); Red Blood Cell (RBC) Count 2.53 mill/uL (4.20-5.40); White Blood Cell (WBC) Count 10.4 thou/uL (4.8-10.8)
[2021-11-21 05:17] LABS: Anion Gap 10 mmol/L (10-20); BUN (Urea Nitrogen) 21 mg/dL (7.0-18.7); Calc. Creatinine Clearance 146 mL/min (70-130); Calcium 7.3 mg/dL (7.8-10.44); Carbon Dioxide 24 mmol/L (22-29); Chloride 111 mmol/L (98-107); Estimated GFR 72; Glucose 120 mg/dL (70-105); Potassium 3.4 mmol/L (3.5-5.1); Sodium 142 mmol/L (136-145)
[2021-11-21] MEDS: Clindamycin/D5W 900 MG in Premix Bag 1 BAG IVPB SCH ×3 (05:47→21:30)
[2021-11-21] MEDS: Meropenem 1 GM in Sodium Chloride 0.9% 100 ML IVPB SCH ×3 (07:47→23:54)
[2021-11-21] MEDS: Famotidine/PF 20 mg/2ml Vial SLOW IVP SCH ×2 (07:47→20:09)
[2021-11-21] MEDS ORDERED: Potassium Chloride 40 MEQ in Premix Bag 1 BAG IVPB SCH (08:00)
[2021-11-21] MEDS: Enoxaparin Sodium 40 MG/0.4 ML SYRINGE SC SCH ×2 (08:50→20:09)
[2021-11-21] MEDS ORDERED: Sodium Bicarbonate Tab 325 MG TAB PER TUBE PRN (10:45)
[2021-11-21] MEDS ORDERED: Pancrelipase DR 12,000 1 CAP FS PRN (10:45)
[2021-11-21] MEDS: Dextrose 5% in Water 1,000 ML IV SCH (13:22)
[2021-11-21] MEDS ORDERED: fentaNYL Citrate/PF 100 MCG/2 ML SYRINGE ONE (16:06)
[2021-11-21] MEDS ORDERED: Midazolam HCl 5 mg/5 ml Vial ONE (16:06)
[2021-11-21] MEDS ORDERED: Ketamine 50 MG/ML (10ML VIAL) ONE (16:06)
[2021-11-21] MEDS ORDERED: Phenylephrine 10 MG/ML VIAL ONE (16:07)
[2021-11-21] MEDS ORDERED: Rocuronium Bromide 10 MG/ML (10ML VIAL) ONE (16:44)
[2021-11-21] MEDS ORDERED: Neomycin-Polymyxin 1 ML AMP ONE (17:42)
[2021-11-21] MEDS: Midazolam HCl 2 mg/2 ml Vial SLOW IVP PRN (19:54)
[2021-11-21] MEDS: Acetaminophen 650 MG/20.3 ML UDCUP PO PRN (21:30)
[2021-11-22] MEDS: Propofol 1,000 MG/100 ML VIAL IV PRN ×6 (00:54→23:32)
[2021-11-22 05:02] LABS: #Eosinphils 0.2 thou/uL (0.0-0.7); #Monocytes 0.9 thou/uL (0.11-0.59); %Basophils 0.2 % (0.0-1.0); %Eosinophils 1.7 % (0.0-10.0); %Lymphocytes 16.4 % (21.0-51.0); %Neutrophils 74.5 % (42.0-75.0); Hemoglobin 8.3 g/dL (12.0-16.0); Mean Corpuscular HGB CONC 32.1 g/dL (32.0-36.0); Mean Corpuscular Hemoglobin 27.9 pg (27.0-31.0); Mean Corpuscular Volume 87.2 fL (78.0-98.0); Mean Platelet Volume 8.2 fL (7.4-10.4); Platelet Count 309 thou/uL (130-400); RBC Distribution Width 14.1 % (11.5-14.5); Red Blood Cell (RBC) Count 2.98 mill/uL (4.20-5.40); White Blood Cell (WBC) Count 12.1 thou/uL (4.8-10.8)
[2021-11-22 05:07] LABS: Anion Gap 11 mmol/L (10-20); BUN (Urea Nitrogen) 18 mg/dL (7.0-18.7); Calc. Creatinine Clearance 136 mL/min (70-130); Calcium 7.5 mg/dL (7.8-10.44); Carbon Dioxide 24 mmol/L (22-29); Chloride 108 mmol/L (98-107); Estimated GFR 66; Glucose 105 mg/dL (70-105); Potassium 3.9 mmol/L (3.5-5.1); Sodium 139 mmol/L (136-145)
[2021-11-22] MEDS: Clindamycin/D5W 900 MG in Premix Bag 1 BAG IVPB SCH ×2 (06:13→14:26)
[2021-11-22] MEDS: Meropenem 1 GM in Sodium Chloride 0.9% 100 ML IVPB SCH ×3 (07:50→23:32)
[2021-11-22] MEDS: Dextrose 5% in Water 1,000 ML IV SCH (07:55)
[2021-11-22] MEDS: Enoxaparin Sodium 40 MG/0.4 ML SYRINGE SC SCH ×2 (10:01→20:46)
[2021-11-22] MEDS: Famotidine/PF 20 mg/2ml Vial SLOW IVP SCH ×2 (10:01→20:46)
[2021-11-22] MEDS ORDERED: Furosemide 20 MG/2 ML VIAL SLOW IVP SCH (10:30)
[2021-11-22 10:53] LABS: Actual Bicarbonate (HCO3v) 26 mEq/L (22-28); Base Excess 1.5 mEq/L (-2.0 to +3.0); Calcium, Ionized (venous) 1.08 mmol/L (1.16-1.32); Chloride (VBG) 106 mmol/L (98-106); Hemoglobin (Hb) 8.5 g/dL (11.7-16.0); Potassium (VBG) 3.77 mmol/L (3.70-5.30); Sodium 136.2 mmol/L (133-146); pH (venous) 7.41 (7.32-7.43)
[2021-11-22] MEDS ORDERED: Fentanyl CADD 100 ML ONE (18:35)
[2021-11-22] MEDS: Fentanyl CADD 100 ML IV SCH (18:36)
[2021-11-23] MEDS: Propofol 1,000 MG/100 ML VIAL IV PRN ×2 (03:26→08:30)
[2021-11-23 06:58] LABS: #Eosinphils 0.2 thou/uL (0.0-0.7); #Monocytes 1.1 thou/uL (0.11-0.59); #Neutrophils 7.6 thou/uL (1.40-6.50); %Basophils 0.4 % (0.0-1.0); %Eosinophils 1.6 % (0.0-10.0); %Lymphocytes 18.3 % (21.0-51.0); %Monocytes 9.9 % (0.0-10.0); %Neutrophils 69.9 % (42.0-75.0); Hemoglobin 7.9 g/dL (12.0-16.0); Mean Corpuscular HGB CONC 32.2 g/dL (32.0-36.0); Mean Corpuscular Hemoglobin 28.1 pg (27.0-31.0); Mean Corpuscular Volume 87.2 fL (78.0-98.0); Mean Platelet Volume 7.5 fL (7.4-10.4); Platelet Count 351 thou/uL (130-400); RBC Distribution Width 13.9 % (11.5-14.5); Red Blood Cell (RBC) Count 2.83 mill/uL (4.20-5.40); White Blood Cell (WBC) Count 10.9 thou/uL (4.8-10.8)
[2021-11-23 07:21] LABS: Phosphorus 4.4 mg/dL (2.3-4.7)
[2021-11-23 07:25] LABS: Anion Gap 10 mmol/L (10-20); BUN (Urea Nitrogen) 19 mg/dL (7.0-18.7); Calc. Creatinine Clearance 131 mL/min (70-130); Calcium 7.9 mg/dL (7.8-10.44); Carbon Dioxide 26 mmol/L (22-29); Chloride 106 mmol/L (98-107); Estimated GFR 68; Glucose 99 mg/dL (70-105); Potassium 3.8 mmol/L (3.5-5.1); Sodium 138 mmol/L (136-145)
[2021-11-23] MEDS: Meropenem 1 GM in Sodium Chloride 0.9% 100 ML IVPB SCH ×3 (08:27→23:35)
[2021-11-23] MEDS: Enoxaparin Sodium 40 MG/0.4 ML SYRINGE SC SCH ×2 (08:37→20:48)
[2021-11-23] MEDS: Famotidine/PF 20 mg/2ml Vial SLOW IVP SCH ×2 (08:37→20:48)
[2021-11-23] MEDS ORDERED: Furosemide 20 MG/2 ML VIAL SLOW IVP SCH (09:00)
[2021-11-23] MEDS ORDERED: Scopolamine 1.5 mg/72 hour Patch TD SCH (11:30)
[2021-11-23] MEDS ORDERED: Dexmedetomidine In 0.9 % NaCl 100 ML IVPB SCH (11:45)
[2021-11-23] MEDS ORDERED: Magnesium 2 GM/50 ML(in water) 2 GM in Premix Bag 1 BAG IVPB SCH (12:45)
[2021-11-23] MEDS: Fentanyl CADD 100 ML IV SCH (14:50)
[2021-11-23] MEDS ORDERED: Lactated Ringer's 500 ML IV SCH (20:45)
[2021-11-24 04:56] LABS: #Basophils 0.1 thou/uL (0.0-0.2); #Eosinphils 0.2 thou/uL (0.0-0.7); #Lymphocytes 2.2 thou/uL (1.20-3.40); #Monocytes 0.9 thou/uL (0.11-0.59); %Basophils 0.6 % (0.0-1.0); %Lymphocytes 23.2 % (21.0-51.0); %Neutrophils 64.2 % (42.0-75.0); Hemoglobin 7.7 g/dL (12.0-16.0); Mean Corpuscular HGB CONC 32.4 g/dL (32.0-36.0); Mean Corpuscular Hemoglobin 28.1 pg (27.0-31.0); Mean Corpuscular Volume 86.6 fL (78.0-98.0); Mean Platelet Volume 7.4 fL (7.4-10.4); Platelet Count 367 thou/uL (130-400); RBC Distribution Width 13.8 % (11.5-14.5); Red Blood Cell (RBC) Count 2.75 mill/uL (4.20-5.40); White Blood Cell (WBC) Count 9.3 thou/uL (4.8-10.8)
[2021-11-24 05:09] LABS: Phosphorus 4.3 mg/dL (2.3-4.7)
[2021-11-24 05:13] LABS: Anion Gap 11 mmol/L (10-20); BUN (Urea Nitrogen) 20 mg/dL (7.0-18.7); Calc. Creatinine Clearance 133 mL/min (70-130); Carbon Dioxide 27 mmol/L (22-29); Chloride 105 mmol/L (98-107); Estimated GFR 71; Glucose 98 mg/dL (70-105); Magnesium 2.2 mg/dL (1.6-2.6); Sodium 139 mmol/L (136-145)
[2021-11-24] MEDS: Meropenem 1 GM in Sodium Chloride 0.9% 100 ML IVPB SCH ×3 (07:48→23:52)
[2021-11-24] MEDS: Famotidine/PF 20 mg/2ml Vial SLOW IVP SCH ×2 (07:48→21:05)
[2021-11-24] MEDS ORDERED: Lorazepam 0.5 MG TAB PO PRN (09:05)
[2021-11-24] MEDS ORDERED: Albumin 25% 25 GM/100 ML BOT IVPB SCH (09:15)
[2021-11-24] MEDS ORDERED: Furosemide 40 MG/4 ML VIAL SLOW IVP SCH (09:46)
[2021-11-24] MEDS: Fentanyl CADD 100 ML IV SCH (10:32)
[2021-11-24] MEDS ORDERED: Midazolam HCl 2 mg/2 ml Vial ONE (14:15)
[2021-11-24] MEDS ORDERED: fentaNYL Citrate/PF 100 MCG/2 ML SYRINGE ONE ×2 (14:16→15:04)
[2021-11-24] MEDS ORDERED: PROPOFOL 20 ML ONE (14:16)
[2021-11-24] MEDS ORDERED: Ondansetron PF 4 MG/2 ML Vial ONE (14:40)
[2021-11-24] MEDS: Polyethylene Glycol 3350 17 GM Packet PER TUBE SCH (16:27)
[2021-11-24] MEDS: Senokot S 8.6-50 MG TAB PO SCH ×2 (16:28→21:05)
[2021-11-24] MEDS ORDERED: Fentanyl 100 MCG/2 ML VIAL SLOW IVP PRN (17:19)
[2021-11-24] MEDS ORDERED: FENTANYL 500 MCG/10 ML VIAL 2,000 MCG in Sodium Chloride 0.9% 60 ML IV PRN (17:49)
[2021-11-24] MEDS ORDERED: diphenhydrAMINE 50 MG/ML VIAL IVP PRN (17:49)
[2021-11-24] MEDS ORDERED: Zolpidem Tartrate 5 MG TAB PO PRN (17:49)
[2021-11-24] MEDS ORDERED: Promethazine HCl 25 MG/ML VIAL IM PRN (17:49)
[2021-11-24] MEDS ORDERED: diphenhydrAMINE 50 MG/ML VIAL IM PRN (17:49)
[2021-11-24] MEDS ORDERED: Naloxone HCl 0.4 mg/ml Vial IV PRN (17:49)
[2021-11-24] MEDS ORDERED: Communication Order-Pharmacy FS PRN (18:00)
[2021-11-24] MEDS ORDERED: Fentanyl CADD 100 ML ONE (20:58)
[2021-11-24] MEDS: Enoxaparin Sodium 40 MG/0.4 ML SYRINGE SC SCH (21:05)
[2021-11-24] MEDS ORDERED: Fentanyl CADD 100 ML IV PRN (21:15)
[2021-11-25 05:03] LABS: #Basophils 0.1 thou/uL (0.0-0.2); #Eosinphils 0.1 thou/uL (0.0-0.7); #Lymphocytes 2.1 thou/uL (1.20-3.40); #Monocytes 1.2 thou/uL (0.11-0.59); #Neutrophils 8.1 thou/uL (1.40-6.50); %Basophils 0.8 % (0.0-1.0); %Lymphocytes 17.8 % (21.0-51.0); %Monocytes 10.2 % (0.0-10.0); %Neutrophils 70.2 % (42.0-75.0); Hemoglobin 7.1 g/dL (12.0-16.0); Mean Corpuscular HGB CONC 31.5 g/dL (32.0-36.0); Mean Corpuscular Hemoglobin 27.6 pg (27.0-31.0); Mean Corpuscular Volume 87.5 fL (78.0-98.0); Mean Platelet Volume 7.2 fL (7.4-10.4); Platelet Count 502 thou/uL (130-400); RBC Distribution Width 13.4 % (11.5-14.5); Red Blood Cell (RBC) Count 2.58 mill/uL (4.20-5.40); White Blood Cell (WBC) Count 11.6 thou/uL (4.8-10.8)
[2021-11-25 05:50] LABS: Phosphorus 4.3 mg/dL (2.3-4.7)
[2021-11-25 05:54] LABS: Anion Gap 11 mmol/L (10-20); BUN (Urea Nitrogen) 19 mg/dL (7.0-18.7); Calc. Creatinine Clearance 122 mL/min (70-130); Calcium 8.2 mg/dL (7.8-10.44); Carbon Dioxide 30 mmol/L (22-29); Chloride 102 mmol/L (98-107); Estimated GFR 64; Glucose 94 mg/dL (70-105); Magnesium 1.9 mg/dL (1.6-2.6); Potassium 3.6 mmol/L (3.5-5.1); Sodium 139 mmol/L (136-145)
[2021-11-25] MEDS ORDERED: Magnesium 2 GM/50 ML(in water) 2 GM in Premix Bag 1 BAG IVPB SCH (08:00)
[2021-11-25] MEDS: Meropenem 1 GM in Sodium Chloride 0.9% 100 ML IVPB SCH ×3 (09:26→23:37)
[2021-11-25] MEDS: Famotidine/PF 20 mg/2ml Vial SLOW IVP SCH (09:26)
[2021-11-25] MEDS: Enoxaparin Sodium 40 MG/0.4 ML SYRINGE SC SCH ×2 (09:26→20:25)
[2021-11-25] MEDS: Senokot S 8.6-50 MG TAB PO SCH ×2 (09:27→20:26)
[2021-11-25] MEDS: Polyethylene Glycol 3350 17 GM Packet PER TUBE SCH (09:40)
[2021-11-25] MEDS: cloNIDine 0.2 MG TAB PO SCH ×3 (12:28→23:39)
[2021-11-25] MEDS: Acetaminophen 500 MG TAB PO SCH ×3 (12:28→23:38)
[2021-11-25] MEDS: traMADol HCl 50 MG TAB PO SCH ×3 (12:29→23:38)
[2021-11-25 15:26] LABS: #Basophils 0.1 thou/uL (0.0-0.2); #Eosinphils 0.1 thou/uL (0.0-0.7); #Monocytes 0.9 thou/uL (0.11-0.59); #Neutrophils 6.6 thou/uL (1.40-6.50); %Basophils 0.8 % (0.0-1.0); %Eosinophils 0.9 % (0.0-10.0); %Lymphocytes 20.8 % (21.0-51.0); %Monocytes 9.2 % (0.0-10.0); %Neutrophils 68.3 % (42.0-75.0); Hemoglobin 8.3 g/dL (12.0-16.0); Mean Corpuscular Hemoglobin 27.6 pg (27.0-31.0); Mean Platelet Volume 7.4 fL (7.4-10.4); Platelet Count 464 thou/uL (130-400); RBC Distribution Width 13.2 % (11.5-14.5); Red Blood Cell (RBC) Count 3.01 mill/uL (4.20-5.40); White Blood Cell (WBC) Count 9.7 thou/uL (4.8-10.8)
[2021-11-25 15:56] LABS: Anion Gap 11 mmol/L (10-20); BUN (Urea Nitrogen) 18 mg/dL (7.0-18.7); Calc. Creatinine Clearance 125 mL/min (70-130); Carbon Dioxide 29 mmol/L (22-29); Chloride 103 mmol/L (98-107); Estimated GFR 66; Glucose 106 mg/dL (70-105); Potassium 3.7 mmol/L (3.5-5.1); Sodium 139 mmol/L (136-145)
[2021-11-25] MEDS: Famotidine 20 MG TAB PO SCH (20:26)
[2021-11-26 04:33] LABS: #Basophils 0.1 thou/uL (0.0-0.2); #Eosinphils 0.2 thou/uL (0.0-0.7); #Lymphocytes 2.3 thou/uL (1.20-3.40); #Monocytes 0.8 thou/uL (0.11-0.59); #Neutrophils 4.9 thou/uL (1.40-6.50); %Basophils 0.9 % (0.0-1.0); %Eosinophils 2.8 % (0.0-10.0); %Lymphocytes 27.7 % (21.0-51.0); %Monocytes 9.2 % (0.0-10.0); %Neutrophils 59.4 % (42.0-75.0); Hemoglobin 7.5 g/dL (12.0-16.0); Mean Corpuscular HGB CONC 31.8 g/dL (32.0-36.0); Mean Corpuscular Volume 88.1 fL (78.0-98.0); Mean Platelet Volume 7.2 fL (7.4-10.4); Platelet Count 416 thou/uL (130-400); RBC Distribution Width 13.1 % (11.5-14.5); Red Blood Cell (RBC) Count 2.69 mill/uL (4.20-5.40); White Blood Cell (WBC) Count 8.2 thou/uL (4.8-10.8)
[2021-11-26 05:26] LABS: Phosphorus 3.7 mg/dL (2.3-4.7)
[2021-11-26] MEDS: traMADol HCl 50 MG TAB PO SCH ×3 (05:38→17:19)
[2021-11-26] MEDS: Acetaminophen 500 MG TAB PO SCH ×3 (05:39→17:18)
[2021-11-26] MEDS: cloNIDine 0.2 MG TAB PO SCH ×3 (05:59→17:54)
[2021-11-26 06:02] LABS: Anion Gap 9 mmol/L (10-20); BUN (Urea Nitrogen) 19 mg/dL (7.0-18.7); Calc. Creatinine Clearance 156 mL/min (70-130); Calcium 7.7 mg/dL (7.8-10.44); Carbon Dioxide 29 mmol/L (22-29); Chloride 104 mmol/L (98-107); Estimated GFR 86; Glucose 83 mg/dL (70-105); Magnesium 2.1 mg/dL (1.6-2.6); Potassium 3.4 mmol/L (3.5-5.1); Sodium 139 mmol/L (136-145)
[2021-11-26] MEDS ORDERED: Potassium Chloride 20 MEQ TAB PO SCH (08:00)
[2021-11-26] MEDS: Meropenem 1 GM in Sodium Chloride 0.9% 100 ML IVPB SCH ×2 (08:15→16:07)
[2021-11-26] MEDS: Famotidine 20 MG TAB PO SCH ×2 (08:15→20:58)
[2021-11-26] MEDS: Enoxaparin Sodium 40 MG/0.4 ML SYRINGE SC SCH ×2 (08:15→20:58)
[2021-11-26] MEDS: Polyethylene Glycol 3350 17 GM Packet PO SCH (08:16)
[2021-11-26] MEDS: Senokot S 8.6-50 MG TAB PO SCH ×2 (08:16→20:58)
[2021-11-26] MEDS ORDERED: Melatonin 3 MG TAB PO PRN (09:24)
[2021-11-26] MEDS: diphenhydrAMINE 25 MG CAP PO PRN (11:09)
[2021-11-26] MEDS ORDERED: Bicillin LA 2.4 MILL.UNITS/4 ML SYRINGE IM SCH (17:00)
[2021-11-27] MEDS: traMADol HCl 50 MG TAB PO SCH ×5 (00:37→23:52)
[2021-11-27] MEDS: Meropenem 1 GM in Sodium Chloride 0.9% 100 ML IVPB SCH ×4 (00:37→23:52)
[2021-11-27] MEDS: Acetaminophen 500 MG TAB PO SCH ×5 (00:38→23:51)
[2021-11-27] MEDS: cloNIDine 0.2 MG TAB PO SCH ×4 (00:45→17:06)
[2021-11-27 08:19] LABS: #Basophils 0.1 thou/uL (0.0-0.2); #Eosinphils 0.2 thou/uL (0.0-0.7); #Lymphocytes 2.5 thou/uL (1.20-3.40); #Monocytes 0.8 thou/uL (0.11-0.59); #Neutrophils 4.4 thou/uL (1.40-6.50); %Basophils 1.1 % (0.0-1.0); %Eosinophils 2.2 % (0.0-10.0); %Lymphocytes 31.7 % (21.0-51.0); %Monocytes 9.6 % (0.0-10.0); %Neutrophils 55.5 % (42.0-75.0); Hemoglobin 9.1 g/dL (12.0-16.0); Mean Corpuscular HGB CONC 32.8 g/dL (32.0-36.0); Mean Corpuscular Hemoglobin 28.6 pg (27.0-31.0); Mean Corpuscular Volume 87.2 fL (78.0-98.0); Mean Platelet Volume 7.1 fL (7.4-10.4); Platelet Count 471 thou/uL (130-400); Red Blood Cell (RBC) Count 3.17 mill/uL (4.20-5.40); White Blood Cell (WBC) Count 7.9 thou/uL (4.8-10.8)
[2021-11-27 08:33] LABS: Anion Gap 10 mmol/L (10-20); BUN (Urea Nitrogen) 17 mg/dL (7.0-18.7); Calc. Creatinine Clearance 150 mL/min (70-130); Calcium 8.2 mg/dL (7.8-10.44); Carbon Dioxide 29 mmol/L (22-29); Chloride 102 mmol/L (98-107); Estimated GFR 83; Glucose 91 mg/dL (70-105); Phosphorus 3.6 mg/dL (2.3-4.7); Sodium 137 mmol/L (136-145)
[2021-11-27] MEDS ORDERED: Lidocaine 4% Topical Sol 50 ML BOT TOP SCH (09:00)
[2021-11-27] MEDS: Lidocaine 4% Topical Sol 50 ML BOT TOP SCH (09:58)
[2021-11-27] MEDS: Polyethylene Glycol 3350 17 GM Packet PO SCH (09:59)
[2021-11-27] MEDS: Enoxaparin Sodium 40 MG/0.4 ML SYRINGE SC SCH ×2 (09:59→20:32)
[2021-11-27] MEDS: Senokot S 8.6-50 MG TAB PO SCH ×2 (09:59→20:33)
[2021-11-27] MEDS: Famotidine 20 MG TAB PO SCH ×2 (10:00→20:33)
[2021-11-27] MEDS: Morphine 4 MG/ML VIAL SLOW IVP PRN (10:03)
[2021-11-27] MEDS: Ondansetron PF 4 MG/2 ML Vial IVP PRN (10:04)
[2021-11-27] MEDS: Lorazepam 2 MG/ML VIAL SLOW IVP PRN (10:17)
[2021-11-27] MEDS ORDERED: Magnesium 2 GM/50 ML(in water) 2 GM in Premix Bag 1 BAG IVPB SCH (12:45)
[2021-11-27] MEDS: diphenhydrAMINE 25 MG CAP PO PRN (20:38)
[2021-11-28] MEDS: cloNIDine 0.2 MG TAB PO SCH ×4 (01:56→17:11)
[2021-11-28] MEDS: Acetaminophen 500 MG TAB PO SCH ×4 (05:35→23:46)
[2021-11-28] MEDS: traMADol HCl 50 MG TAB PO SCH ×4 (05:36→23:47)
[2021-11-28] MEDS: Polyethylene Glycol 3350 17 GM Packet PO SCH (09:18)
[2021-11-28] MEDS: Enoxaparin Sodium 40 MG/0.4 ML SYRINGE SC SCH ×2 (09:18→21:26)
[2021-11-28] MEDS: Famotidine 20 MG TAB PO SCH ×2 (09:18→21:27)
[2021-11-28] MEDS: Meropenem 1 GM in Sodium Chloride 0.9% 100 ML IVPB SCH ×3 (09:18→23:46)
[2021-11-28] MEDS: Senokot S 8.6-50 MG TAB PO SCH (09:19)
[2021-11-29] MEDS: cloNIDine 0.2 MG TAB PO SCH ×5 (03:03→23:54)
[2021-11-29] MEDS: Senokot S 8.6-50 MG TAB PO SCH ×3 (03:03→20:51)
[2021-11-29] MEDS: Acetaminophen 500 MG TAB PO SCH ×4 (05:58→23:53)
[2021-11-29] MEDS: traMADol HCl 50 MG TAB PO SCH ×4 (05:58→23:54)
[2021-11-29] MEDS: Meropenem 1 GM in Sodium Chloride 0.9% 100 ML IVPB SCH ×2 (09:07→16:49)
[2021-11-29] MEDS: Enoxaparin Sodium 40 MG/0.4 ML SYRINGE SC SCH ×2 (09:07→20:51)
[2021-11-29] MEDS: Famotidine 20 MG TAB PO SCH ×2 (09:07→20:51)
[2021-11-29] MEDS: Polyethylene Glycol 3350 17 GM Packet PO SCH (09:08)
[2021-11-30] MEDS: Meropenem 1 GM in Sodium Chloride 0.9% 100 ML IVPB SCH ×4 (01:23→23:32)
[2021-11-30] MEDS: Acetaminophen 500 MG TAB PO SCH ×4 (06:08→23:26)
[2021-11-30] MEDS: traMADol HCl 50 MG TAB PO SCH ×4 (06:09→23:27)
[2021-11-30] MEDS: cloNIDine 0.2 MG TAB PO SCH ×4 (06:10→23:29)
[2021-11-30 06:37] LABS: #Basophils 0.1 thou/uL (0.0-0.2); #Eosinphils 0.1 thou/uL (0.0-0.7); #Lymphocytes 2.9 thou/uL (1.20-3.40); #Monocytes 0.5 thou/uL (0.11-0.59); #Neutrophils 4.5 thou/uL (1.40-6.50); %Basophils 0.8 % (0.0-1.0); %Eosinophils 1.6 % (0.0-10.0); %Lymphocytes 36.1 % (21.0-51.0); %Monocytes 6.2 % (0.0-10.0); %Neutrophils 55.3 % (42.0-75.0); Hemoglobin 9.7 g/dL (12.0-16.0); Mean Corpuscular HGB CONC 32.1 g/dL (32.0-36.0); Mean Corpuscular Hemoglobin 28.1 pg (27.0-31.0); Mean Corpuscular Volume 87.8 fL (78.0-98.0); Mean Platelet Volume 7.4 fL (7.4-10.4); Platelet Count 341 thou/uL (130-400); RBC Distribution Width 13.6 % (11.5-14.5); Red Blood Cell (RBC) Count 3.43 mill/uL (4.20-5.40); White Blood Cell (WBC) Count 8.1 thou/uL (4.8-10.8)
[2021-11-30 06:53] LABS: Anion Gap 11 mmol/L (10-20); BUN (Urea Nitrogen) 12 mg/dL (7.0-18.7); Calc. Creatinine Clearance 150 mL/min (70-130); Calcium 8.3 mg/dL (7.8-10.44); Carbon Dioxide 25 mmol/L (22-29); Chloride 104 mmol/L (98-107); Estimated GFR 83; Glucose 85 mg/dL (70-105); Sodium 136 mmol/L (136-145)
[2021-11-30] MEDS: Famotidine 20 MG TAB PO SCH ×2 (09:27→20:40)
[2021-11-30] MEDS: Enoxaparin Sodium 40 MG/0.4 ML SYRINGE SC SCH ×2 (09:28→20:40)
[2021-11-30] MEDS: Senokot S 8.6-50 MG TAB PO SCH ×2 (09:28→20:41)
[2021-11-30] MEDS: Polyethylene Glycol 3350 17 GM Packet PO SCH (09:28)
[2021-12-01 05:12] LABS: #Basophils 0.1 thou/uL (0.0-0.2); #Eosinphils 0.2 thou/uL (0.0-0.7); #Lymphocytes 2.8 thou/uL (1.20-3.40); #Monocytes 0.5 thou/uL (0.11-0.59); #Neutrophils 3.2 thou/uL (1.40-6.50); %Basophils 0.8 % (0.0-1.0); %Eosinophils 2.4 % (0.0-10.0); %Monocytes 7.4 % (0.0-10.0); %Neutrophils 47.4 % (42.0-75.0); Hemoglobin 9.2 g/dL (12.0-16.0); Mean Corpuscular HGB CONC 32.4 g/dL (32.0-36.0); Mean Corpuscular Hemoglobin 28.5 pg (27.0-31.0); Mean Corpuscular Volume 87.8 fL (78.0-98.0); Mean Platelet Volume 7.1 fL (7.4-10.4); Platelet Count 334 thou/uL (130-400); RBC Distribution Width 13.6 % (11.5-14.5); Red Blood Cell (RBC) Count 3.23 mill/uL (4.20-5.40); White Blood Cell (WBC) Count 6.7 thou/uL (4.8-10.8)
[2021-12-01 05:31] LABS: Anion Gap 10 mmol/L (10-20); BUN (Urea Nitrogen) 13 mg/dL (7.0-18.7); Calc. Creatinine Clearance 148 mL/min (70-130); Calcium 8.4 mg/dL (7.8-10.44); Carbon Dioxide 27 mmol/L (22-29); Chloride 104 mmol/L (98-107); Estimated GFR 82; Glucose 86 mg/dL (70-105); Potassium 4.2 mmol/L (3.5-5.1); Sodium 137 mmol/L (136-145)
[2021-12-01] MEDS: traMADol HCl 50 MG TAB PO SCH ×4 (06:03→23:45)
[2021-12-01] MEDS: Acetaminophen 500 MG TAB PO SCH ×4 (06:04→23:48)
[2021-12-01] MEDS: cloNIDine 0.2 MG TAB PO SCH ×4 (06:06→23:44)
[2021-12-01] MEDS: Meropenem 1 GM in Sodium Chloride 0.9% 100 ML IVPB SCH ×3 (08:18→23:43)
[2021-12-01] MEDS: Enoxaparin Sodium 40 MG/0.4 ML SYRINGE SC SCH ×2 (08:22→19:55)
[2021-12-01] MEDS: Famotidine 20 MG TAB PO SCH ×2 (08:22→19:56)
[2021-12-01] MEDS: Lidocaine 4% Topical Sol 50 ML BOT TOP SCH (08:22)
[2021-12-01] MEDS: Polyethylene Glycol 3350 17 GM Packet PO SCH (08:22)
[2021-12-01] MEDS: Senokot S 8.6-50 MG TAB PO SCH ×2 (08:23→19:56)
[2021-12-01] MEDS ORDERED: fentaNYL Citrate/PF 100 MCG/2 ML SYRINGE ONE (08:30)
[2021-12-01] MEDS ORDERED: SUGAMMADEX SODIUM 200 MG/2 ML VIAL ONE (08:30)
[2021-12-01] MEDS ORDERED: Dexamethasone 20 MG/5 ML VIAL ONE (11:16)
[2021-12-01] MEDS ORDERED: Rocuronium Bromide 10 MG/ML (10ML VIAL) ONE (11:16)
[2021-12-01] MEDS ORDERED: PROPOFOL 200 MG/20 ML VIAL ONE (11:16)
[2021-12-01] MEDS ORDERED: Ondansetron PF 4 MG/2 ML Vial ONE (11:16)
[2021-12-01] MEDS ORDERED: Ondansetron HCl/PF 4 MG/2 ML Vial IVP PRN (13:18)
[2021-12-01] MEDS ORDERED: Promethazine HCl 25 MG/ML VIAL IM PRN (13:18)
[2021-12-01] MEDS ORDERED: Promethazine HCl 25 MG/ML VIAL IVPB PRN (13:18)
[2021-12-01] MEDS ORDERED: Fentanyl 100 MCG/2 ML VIAL ONE (13:28)
[2021-12-01] MEDS ORDERED: Promethazine HCl 25 MG/ML VIAL ONE (13:41)
[2021-12-01] MEDS: Morphine 4 MG/ML VIAL SLOW IVP PRN (17:00)
[2021-12-02] MEDS: cloNIDine 0.2 MG TAB PO SCH ×5 (05:15→23:10)
[2021-12-02] MEDS: traMADol HCl 50 MG TAB PO SCH ×4 (05:15→23:10)
[2021-12-02] MEDS: Acetaminophen 500 MG TAB PO SCH ×4 (05:15→23:10)
[2021-12-02] MEDS: Enoxaparin Sodium 40 MG/0.4 ML SYRINGE SC SCH ×2 (08:37→21:40)
[2021-12-02] MEDS: Famotidine 20 MG TAB PO SCH ×2 (08:37→21:40)
[2021-12-02] MEDS: Meropenem 1 GM in Sodium Chloride 0.9% 100 ML IVPB SCH (08:37)
[2021-12-02] MEDS: Senokot S 8.6-50 MG TAB PO SCH ×2 (08:43→21:40)
[2021-12-02] MEDS: Polyethylene Glycol 3350 17 GM Packet PO SCH (08:43)
[2021-12-03] MEDS: cloNIDine 0.2 MG TAB PO SCH (05:23)
[2021-12-03] MEDS: traMADol HCl 50 MG TAB PO SCH ×3 (05:23→17:15)
[2021-12-03] MEDS: Acetaminophen 500 MG TAB PO SCH ×3 (05:24→17:14)
[2021-12-03] MEDS: Enoxaparin Sodium 40 MG/0.4 ML SYRINGE SC SCH ×2 (08:41→20:15)
[2021-12-03] MEDS: Famotidine 20 MG TAB PO SCH ×2 (08:41→20:15)
[2021-12-03] MEDS: Senokot S 8.6-50 MG TAB PO SCH ×2 (08:42→20:15)
[2021-12-03] MEDS: Polyethylene Glycol 3350 17 GM Packet PO SCH (08:42)
[2021-12-03] MEDS ORDERED: Bicillin LA 2.4 MILL.UNITS/4 ML SYRINGE IM SCH (09:00)
[2021-12-04] MEDS: Acetaminophen 500 MG TAB PO SCH ×5 (00:13→23:14)
[2021-12-04] MEDS: traMADol HCl 50 MG TAB PO SCH ×5 (00:13→23:14)
[2021-12-04] MEDS ORDERED: Lorazepam 2 MG/ML VIAL IVPB SCH (06:00)
[2021-12-04] MEDS ORDERED: Midazolam HCl 2 mg/2 ml Vial SLOW IVP SCH (08:45)
[2021-12-04] MEDS ORDERED: Lidocaine 4% Topical Sol 50 ML BOT TOP SCH (09:31)
[2021-12-04] MEDS: Polyethylene Glycol 3350 17 GM Packet PO SCH (09:37)
[2021-12-04] MEDS: Senokot S 8.6-50 MG TAB PO SCH ×2 (09:37→20:03)
[2021-12-04] MEDS: Morphine 4 MG/ML VIAL SLOW IVP PRN (09:38)
[2021-12-04] MEDS: Ondansetron PF 4 MG/2 ML Vial IVP PRN (09:38)
[2021-12-04] MEDS: Enoxaparin Sodium 40 MG/0.4 ML SYRINGE SC SCH ×2 (09:39→20:02)
[2021-12-04] MEDS: Famotidine 20 MG TAB PO SCH ×2 (09:39→20:03)
[2021-12-04] MEDS: Lidocaine 4% Topical Sol 50 ML BOT TOP SCH (10:03)
[2021-12-04] MEDS: Lorazepam 2 MG/ML VIAL SLOW IVP PRN (10:04)
[2021-12-04 16:39] VITALS: BMI 40.8
[2021-12-05] MEDS: traMADol HCl 50 MG TAB PO SCH ×4 (05:15→22:56)
[2021-12-05] MEDS: Acetaminophen 500 MG TAB PO SCH ×4 (05:15→22:56)
[2021-12-05] MEDS: Enoxaparin Sodium 40 MG/0.4 ML SYRINGE SC SCH ×2 (09:22→20:21)
[2021-12-05] MEDS: Famotidine 20 MG TAB PO SCH ×2 (09:22→20:21)
[2021-12-05] MEDS: Senokot S 8.6-50 MG TAB PO SCH ×2 (09:22→20:21)
[2021-12-05] MEDS: Polyethylene Glycol 3350 17 GM Packet PO SCH (09:22)
[2021-12-06] MEDS: Acetaminophen 500 MG TAB PO SCH ×4 (05:58→23:37)
[2021-12-06] MEDS: Enoxaparin Sodium 40 MG/0.4 ML SYRINGE SC SCH ×2 (09:44→21:06)
[2021-12-06] MEDS: Polyethylene Glycol 3350 17 GM Packet PO SCH (09:45)
[2021-12-06] MEDS: Senokot S 8.6-50 MG TAB PO SCH ×2 (09:45→21:07)
[2021-12-06] MEDS: Famotidine 20 MG TAB PO SCH ×2 (09:45→21:07)
[2021-12-07] MEDS: Acetaminophen 500 MG TAB PO SCH ×4 (06:04→23:13)
[2021-12-07] MEDS: Senokot S 8.6-50 MG TAB PO SCH ×2 (08:08→21:06)
[2021-12-07] MEDS: Enoxaparin Sodium 40 MG/0.4 ML SYRINGE SC SCH ×2 (08:08→21:06)
[2021-12-07] MEDS: Polyethylene Glycol 3350 17 GM Packet PO SCH (08:08)
[2021-12-07] MEDS: Famotidine 20 MG TAB PO SCH ×2 (08:08→21:06)
[2021-12-07] MEDS: traMADol HCl 50 MG TAB PO PRN (16:39)
[2021-12-08] MEDS: Acetaminophen 500 MG TAB PO SCH ×2 (05:58→11:12)
[2021-12-08] MEDS: Famotidine 20 MG TAB PO SCH (08:16)
[2021-12-08] MEDS: Polyethylene Glycol 3350 17 GM Packet PO SCH (08:16)
[2021-12-08] MEDS: Senokot S 8.6-50 MG TAB PO SCH (08:16)
[2021-12-08] MEDS: Enoxaparin Sodium 40 MG/0.4 ML SYRINGE SC SCH (08:16)
[2021-12-08] MEDS ORDERED: Midazolam HCl 2 mg/2 ml Vial SLOW IVP SCH (09:15)
[2021-12-08] MEDS ORDERED: Morphine 4 MG/ML VIAL SLOW IVP SCH (09:15)
[2021-12-08] MEDS: Lidocaine 4% Topical Sol 50 ML BOT TOP SCH (09:31)
[2021-12-08] MEDS: traMADol HCl 50 MG TAB PO PRN (11:12)
[2021-12-08 12:34] VITALS: BP 126/80; TEMP 98.6
[2021-12-10] MEDS ORDERED: Bicillin LA 2.4 MILL.UNITS/4 ML SYRINGE IM SCH (09:00)
== END 2021-12-08 16:30 | disposition home or self-care (01) | DRG 853 ==
LOC: ERS 07:39 → IMCU/EMU 11:43 → CCU 11-13 04:58 → SURG B 11-26 19:40
PROVIDERS: ADMIT Family Medicine; ATTEND Internal Medicine
PROC: 3E03329 Introduction of Other Anti-infective into Peripheral Vein, Percutaneous Approach (ICD-10-PCS; 2021-11-12)
PROC: 0JB80ZZ Excision of Abdomen Subcutaneous Tissue and Fascia, Open Approach (ICD-10-PCS; principal; 2021-11-13)
PROC: 0JBB0ZZ Excision of Perineum Subcutaneous Tissue and Fascia, Open Approach (ICD-10-PCS; 2021-11-13)
PROC: 0JBC0ZZ Excision of Pelvic Region Subcutaneous Tissue and Fascia, Open Approach (ICD-10-PCS; 2021-11-13)
PROC: 02HV33Z Insertion of Infusion Device into Superior Vena Cava, Percutaneous Approach (ICD-10-PCS; 2021-11-13)
PROC: 0JB80ZZ Excision of Abdomen Subcutaneous Tissue and Fascia, Open Approach (ICD-10-PCS; 2021-11-14)
PROC: 0JBB0ZZ Excision of Perineum Subcutaneous Tissue and Fascia, Open Approach (ICD-10-PCS; 2021-11-14)
PROC: 0JBC0ZZ Excision of Pelvic Region Subcutaneous Tissue and Fascia, Open Approach (ICD-10-PCS; 2021-11-14)
PROC: 3E033XZ Introduction of Vasopressor into Peripheral Vein, Percutaneous Approach (ICD-10-PCS; 2021-11-14)
PROC: 5A1955Z Respiratory Ventilation, Greater than 96 Consecutive Hours (ICD-10-PCS; 2021-11-14)
PROC: 0JB80ZZ Excision of Abdomen Subcutaneous Tissue and Fascia, Open Approach (ICD-10-PCS; 2021-11-16)
PROC: 0JBB0ZZ Excision of Perineum Subcutaneous Tissue and Fascia, Open Approach (ICD-10-PCS; 2021-11-16)
PROC: 0JB80ZZ Excision of Abdomen Subcutaneous Tissue and Fascia, Open Approach (ICD-10-PCS; 2021-11-18)
PROC: 0JBB0ZZ Excision of Perineum Subcutaneous Tissue and Fascia, Open Approach (ICD-10-PCS; 2021-11-18)
PROC: 0JBC0ZZ Excision of Pelvic Region Subcutaneous Tissue and Fascia, Open Approach (ICD-10-PCS; 2021-11-18)
PROC: 30233N1 Transfusion of Nonautologous Red Blood Cells into Peripheral Vein, Percutaneous Approach (ICD-10-PCS; 2021-11-18)
PROC: 0JB80ZZ Excision of Abdomen Subcutaneous Tissue and Fascia, Open Approach (ICD-10-PCS; 2021-11-19)
PROC: 0JBB0ZZ Excision of Perineum Subcutaneous Tissue and Fascia, Open Approach (ICD-10-PCS; 2021-11-19)
PROC: 0JBC0ZZ Excision of Pelvic Region Subcutaneous Tissue and Fascia, Open Approach (ICD-10-PCS; 2021-11-19)
PROC: 0JB80ZZ Excision of Abdomen Subcutaneous Tissue and Fascia, Open Approach (ICD-10-PCS; 2021-11-21)
PROC: 0JBB0ZZ Excision of Perineum Subcutaneous Tissue and Fascia, Open Approach (ICD-10-PCS; 2021-11-21)
PROC: 0JBC0ZZ Excision of Pelvic Region Subcutaneous Tissue and Fascia, Open Approach (ICD-10-PCS; 2021-11-21)
PROC: 0UBM0ZZ Excision of Vulva, Open Approach (ICD-10-PCS; 2021-11-24)
PROC: 0JBB0ZZ Excision of Perineum Subcutaneous Tissue and Fascia, Open Approach (ICD-10-PCS; 2021-11-24)
PROC: 0J980ZZ Drainage of Abdomen Subcutaneous Tissue and Fascia, Open Approach (ICD-10-PCS; 2021-12-01)
PROC: 0J9B0ZZ Drainage of Perineum Subcutaneous Tissue and Fascia, Open Approach (ICD-10-PCS; 2021-12-01)
PROC: 0J9C0ZZ Drainage of Pelvic Region Subcutaneous Tissue and Fascia, Open Approach (ICD-10-PCS; 2021-12-01)
DX: A41.4 Sepsis due to anaerobes (principal); G93.41 Metabolic encephalopathy; J96.01 Acute respiratory failure with hypoxia; M72.6 Necrotizing fasciitis; R65.21 Severe sepsis with septic shock; N17.9 Acute kidney failure, unspecified; I96 Gangrene, not elsewhere classified; Z68.41 Body mass index [BMI] 40.0-44.9, adult; N76.4 Abscess of vulva; I47.1 Supraventricular tachycardia; E87.0 Hyperosmolality and hypernatremia; D62 Acute posthemorrhagic anemia; A52.8 Late syphilis, latent; Z20.822 Contact with and (suspected) exposure to COVID-19; N76.2 Acute vulvitis; E87.6 Hypokalemia; R73.9 Hyperglycemia, unspecified; E66.01 Morbid (severe) obesity due to excess calories; N18.30 Chronic kidney disease, stage 3 unspecified; D63.1 Anemia in chronic kidney disease; E87.8 Other disorders of electrolyte and fluid balance, not elsewhere classified; E83.42 Hypomagnesemia; E83.51 Hypocalcemia
CPT/HCPCS: 36415; 36416; 36430; 71045; 74018; 74177; 80048; 80053; 80074; 80202; 81003; 81015; 82805; 83036; 83605; 83735; 84100; 84484; 84703; 85025; 85060; 85610; 85730; 86593; 86780; 86850; 86900; 86901; 87040; 87070; 87076; 87077; 87086; 87186; 87205; 87252; 87324; 87389; 87449; 87491; 87591; 87661; 87811; 88305; 93005; 93010; 93970; 94002; 94003; 94640; 94760; 96374; 96375; 97139; J0561; J0692; J1100; J1170; J1200; J1650; J1885; J1940; J2060; J2185; J2248; J2250; J2270; J2370; J2405; J2543; J2550; J2704; J2765; J2997; J3010; J3370; J3475; J3480; J3490; J7050; J7070; J7120; J7620; P9016; P9045; P9047; Q0162; Q9967; S0028

== ENCOUNTER 2021-12-25 06:26 | Observation (INO) | payer SELFPAY ==
[2021-12-24 11:34] VITALS: BMI 39.9
[2021-12-25] MEDS ORDERED: Acetaminophen 500 MG TAB ONE (08:15)
[2021-12-25] MEDS ORDERED: Ketorolac Tromethamine 30 MG/ML VIAL ONE ×2 (08:15→08:35)
[2021-12-25] MEDS ORDERED: fentaNYL PF 100 MCG/2 ML SYRINGE ONE (09:52)
[2021-12-25] MEDS ORDERED: CEFAZOLIN 2 GM VIAL ONE (09:59)
[2021-12-25] MEDS ORDERED: Sodium Chloride 0.9% 100 ML ONE (09:59)
[2021-12-25] MEDS ORDERED: Glycopyrrolate 0.2 MG/ML 5 ML SYRINGE ONE (10:13)
[2021-12-25] MEDS ORDERED: Dexamethasone 20 MG/5 ML VIAL ONE (10:13)
[2021-12-25] MEDS ORDERED: Rocuronium Bromide 10 MG/ML (10ML VIAL) ONE (10:13)
[2021-12-25] MEDS ORDERED: PROPOFOL 200 MG/20 ML VIAL ONE (10:13)
[2021-12-25] MEDS ORDERED: NEOSTIGMINE 3 MG/3 ML SYR 3 MG/3 ML SYRINGE ONE (10:13)
[2021-12-25] MEDS ORDERED: Ondansetron PF 4 MG/2 ML Vial ONE (10:13)
[2021-12-25 10:33] LABS: SARS-CoV-2 NAA Rapid Test Not Detected (NotDetected)
[2021-12-25] MEDS ORDERED: traMADol HCl 50 MG TAB PO PRN (12:43)
[2021-12-25] MEDS ORDERED: Ondansetron PF 4 MG/2 ML Vial IVP PRN (12:43)
[2021-12-25] MEDS ORDERED: Dextrose 5% in Water 1,000 ML IV PRN (12:43)
[2021-12-25] MEDS ORDERED: TETANUS, DIPHTHERIA TOX,ADULT (TDVAX) 0.5 ML VIAL IM ONE (12:43)
[2021-12-25] MEDS ORDERED: Dextrose 50% Abboject 50 ML SYRINGE SLOW IVP PRN (12:43)
[2021-12-25] MEDS ORDERED: Morphine 4 MG/ML VIAL SLOW IVP PRN (12:46)
[2021-12-25] MEDS ORDERED: traMADol HCl 50 MG TAB PO SCH (13:15)
[2021-12-25] MEDS ORDERED: Acetaminophen 500 MG TAB PO SCH (13:15)
[2021-12-25] MEDS ORDERED: Non-Formulary Medication 1 EACH PO PRN (13:16)
[2021-12-25] MEDS ORDERED: Ondansetron HCl/PF 4 MG/2 ML Vial IVP PRN (13:17)
[2021-12-25] MEDS ORDERED: Promethazine HCl 25 MG/ML VIAL IM/IV PRN (13:17)
[2021-12-25] MEDS ORDERED: PACU-Morphine 4MG/ML VIAL SLOW IVP PRN (13:17)
[2021-12-25] MEDS ORDERED: Morphine Sulfate 2 MG/ML SYRINGE SLOW IVP PRN (13:30)
[2021-12-25] MEDS: traMADol HCl 50 MG TAB PO SCH ×2 (17:37→23:26)
[2021-12-25] MEDS: Acetaminophen 500 MG TAB PO SCH ×2 (17:38→23:25)
[2021-12-25] MEDS ORDERED: Loratadine 10 MG TAB PO PRN (18:00)
[2021-12-25] MEDS ORDERED: Enoxaparin Sodium 40 MG/0.4 ML SYRINGE SC SCH (21:00)
[2021-12-26] MEDS: Acetaminophen 500 MG TAB PO SCH ×2 (05:26→11:33)
[2021-12-26] MEDS: traMADol HCl 50 MG TAB PO SCH ×2 (05:26→11:34)
[2021-12-26 05:44] LABS: #Lymphocytes 2.3 thou/uL (1.20-3.40); #Monocytes 0.6 thou/uL (0.11-0.59); #Neutrophils 5.8 thou/uL (1.40-6.50); %Basophils 0.2 % (0.0-1.0); %Eosinophils 0.1 % (0.0-10.0); %Lymphocytes 26.6 % (21.0-51.0); %Monocytes 6.8 % (0.0-10.0); %Neutrophils 66.4 % (42.0-75.0); Hemoglobin 8.4 g/dL (12.0-16.0); Mean Corpuscular HGB CONC 32.3 g/dL (32.0-36.0); Mean Corpuscular Hemoglobin 28.2 pg (27.0-31.0); Mean Corpuscular Volume 87.1 fl (78.0-98.0); Mean Platelet Volume 7.4 fL (7.4-10.4); Platelet Count 273 10x3/uL (130-400); RBC Distribution Width 13.5 % (11.5-14.5); Red Blood Cell (RBC) Count 2.97 mill/uL (4.20-5.40); White Blood Cell (WBC) Count 8.7 10x3/uL (4.8-10.8)
[2021-12-26 06:05] LABS: ALT (SGPT) 33 U/L (8-55); AST (SGOT) 24 U/L (5-34); Albumin 3.3 g/dL (3.5-5.0); Alkaline Phosphatase 96 U/L (40-110); Anion Gap 11 mmol/L (10-20); BUN (Urea Nitrogen) 14 mg/dL (7.0-18.7); Bilirubin, Total 0.3 mg/dL (0.2-1.2); Calc. Creatinine Clearance 138 mL/min (70-130); Calcium 8.9 mg/dL (7.8-10.44); Carbon Dioxide 24 mmol/L (22-29); Chloride 106 mmol/L (98-107); Estimated GFR 86; Globulin 3.5 g/dL (2.4-3.5); Glucose 108 mg/dL (70-105); Magnesium 1.9 mg/dL (1.6-2.6); Phosphorus 3.9 mg/dL (2.3-4.7); Potassium 4.2 mmol/L (3.5-5.1); Protein, Total 6.8 g/dL (6.0-8.3); Sodium 137 mmol/L (136-145)
[2021-12-26] MEDS ORDERED: FLU VACC QS2022-23(6MOS UP)/PF 60 MCG/0.5 ML SYRINGE IM ONE (09:00)
[2021-12-26 12:02] VITALS: BP 114/77; TEMP 98.6
[2021-12-26] MEDS ORDERED: Ferrous Sulfate 325 MG TAB PO SCH (17:00)
[2021-12-26] MEDS ORDERED: Ascorbic Acid 500 mg Chewable Tablet PO SCH (21:00)
[2021-12-26] MEDS ORDERED: Amoxicillin/Potassium Clav 875 MG TAB PO SCH (21:00)
[2021-12-27] MEDS ORDERED: Aspirin 325 mg Enteric Coated Tablet PO SCH (09:00)
== END 2021-12-26 15:50 | disposition home or self-care (01) ==
LOC: SDC 06:26 → SURG B 14:45
PROVIDERS: ADMIT Surgery; ATTEND Surgery
PROC: 0KBL0ZZ Excision of Left Abdomen Muscle, Open Approach (ICD-10-PCS; principal; 2021-12-25)
PROC: 0KBK0ZZ Excision of Right Abdomen Muscle, Open Approach (ICD-10-PCS; 2021-12-25)
PROC: 0HBAXZZ Excision of Inguinal Skin, External Approach (ICD-10-PCS; 2021-12-25)
PROC: 0KBM0ZZ Excision of Perineum Muscle, Open Approach (ICD-10-PCS; 2021-12-25)
DX: M72.6 Necrotizing fasciitis (principal); E66.01 Morbid (severe) obesity due to excess calories; Z68.41 Body mass index [BMI] 40.0-44.9, adult; Z20.822 Contact with and (suspected) exposure to COVID-19
CPT/HCPCS: 36415; 80053; 83735; 84100; 85025; 96372; 96374; G0378; J1100; J1650; J1885; J2270; J2405; J2704; J3490; U0002